=== PATIENT | male | born 1990 | race Caucasian/White ===

== ENCOUNTER 2017-02-23 02:28 | Emergency (ER) | payer SELFPAY ==
[~2017-02-23] VITALS: Ht 177.8 cm; Wt 70.0 kg
[~2017-02-23 02:28] MED LIST: ARIP1TAB12 PO
[2017-02-23] MEDS ORDERED: IBUP800T23 PO (03:44)
[2017-02-23] MEDS ORDERED: IBUPROFEN 800 MG TAB PO ONE (03:45)
[2017-02-23 03:48] VITALS: BP 155/89; PULSE 79; RESP 18; O2SAT 98
--- NOTE | 2017-02-23 03:48 | PD ---
HPI Chief Complaint: Injury Time Seen by Provider: 03:42 Travel History International Travel<30 days: No Contact w/Intl Traveler<30days: No Traveled to known affect area: No History of Present Illness HPI 26-year-old white male presents to emergency department with complains of bilateral foot pain. He states that he was in boots and jump off a 6-8 foot fence 5 days ago. He states that he's been walking around since then has had pain in both of his heels and arches. He states that he has taken his boots off because they have developed blisters on his feet. He states that he has not been wearing socks. He presents for evaluation. Pain is moderate. Worse with weightbearing. No other injury. Denies injury to his head, neck or back. Up-to-date with immunizations. PFSH Past Medical History Asthma: Yes Bipolar Disorder: Yes Anxiety: Yes Depression: Yes Chemotherapy: No COPD: No Diminished Hearing: No Endocrine: No Gastrointestinal Disorders: No GERD: No Genitourinary: No Hiatal Hernia: No Implanted Vascular Access Dvce: No Kidney Stones: No Musculoskeletal: No Neurologic: No Psychiatric: Yes Reproductive: No Respiratory: No Immunizations Current: Yes Radiation Therapy: No Renal Failure: No Schizophrenia: Yes Sickle Cell Disease: No Thyroid Disease: No Ulcer: No Past Surgical History Abdominal Surgery: Yes (LAP BAND) AICD: No Arteriovenous Shunt: No Ear Surgery: No Endocrine Surgery: No Eye Surgery: No Gynecologic Surgery: No Insulin Pump: No Joint Replacement: No Oral Surgery: No Pacemaker: No Other Surgery: No Social History Alcohol Use: Yes (OCC) Tobacco Use: Yes (4 TO 5 CIGARETTES/DAY) Substance Use: No Allergies-Medications (Allergen,Severity, Reaction): Coded Allergies: shellfish derived (Unverified Allergy, Severe, 01/19/17) Reported Meds & Prescriptions Reported Meds & Active Scripts Active Aripiprazole 10 Mg Tab 25 Mg PO DAILY 10 Days Review of Systems Except as stated in HPI: all other systems reviewed are Neg Physical Exam Narrative GENERAL: This is a well-nourished, well-developed patient, in no apparent distress. SKIN: No rashes, ecchymoses or lesions. Warm and dry. HEAD: Atraumatic. Normocephalic. EYES: PERRL, EOMI, no discharge or injection. No scleral icterus. EARS: Clear NOSE: Nasal turbinates appear normal. THROAT: Mucosa pink and moist. Airway patent. NECK: Trachea midline. supple, moves head freely. LUNGS: Clear to auscultation. CV: Regular in rhythm. ABDOMEN: Soft nontender. EXT: No clubbing cyanosis. Examination of both feet reveal pain across the plantar arch into the heel. No pain in the Achilles. Patient has diffuse friction blisters on both feet from wearing boots without socks. Patient has slight maceration between the toes from athletes feet. Patient hasn't intact gross sensation with good distal pulses. No pain in the ankles, knees or hips. Data Data Orders Orders Splint Or Brace Apply/Monitor (02/23/17 03:42) Ibuprofen (Motrin) (02/23/17 03:45) MDM Medical Decision Making Medical Screen Exam Complete: Yes Emergency Medical Condition: Yes Medical Record Reviewed: Yes Interpretation(s) Right foot: Negative for acute bony injury. Left foot: Negative for acute bony injury Differential Diagnosis MDM: High Differential diagnoses: Fracture, sprain, strain, dislocation, contusion, neurovascular injury Narrative Course X-rays of both feet are negative for bony injury. Patient's given 800 mg of Motrin by mouth, Christ wraps and socks. Diagnosis Primary Impression: bilateral foot contusions Patient Instructions: General Instructions Additional Instructions: Rest. Elevation. Ice packs for the next 3 days. Christ wrap. Daily wound care with soap, water, Neosporin. Limit walking. Medications as directed Follow-up with an orthopedist or your doctor in one week. Return to the ER if any problems Med/Other Pt SpecificInfo: Prescription(s) given Scripts Ibuprofen (Ibuprofen) 800 Mg Tab 800 MG PO Q8H, #30 TAB 0 Refills Prov: Kourtney Manrique 02/23/17 Disposition: 01 DISCHARGE HOME Condition: Stable Rufino Ag Feb 23, 2017 03:48
--- NOTE | 2017-02-23 05:04 | RADRPT ---
EXAM DATE/TIME: 02/23/2017 00:00 [facility] COMPARISON: No previous studies available for comparison. INDICATIONS : Pain in feet from jumping over fence 4 days ago. MEDICAL HISTORY : None. SURGICAL HISTORY : None. ENCOUNTER: Initial ACUITY: 4 - 6 days PAIN SCORE: 0/10 LOCATION: Right foot FINDINGS: Three view examination of the right foot demonstrates no soft tissue swelling, dislocation, or fractu re. The tarsal bones appear intact. The interphalangeal and metatarsophalangeal joints are intact. The calcaneus is intact. Bony mineralization is normal. CONCLUSION: Unremarkable examination of the right foot. David Guadarrama Jr., MD on February 23, 2017 at 5:02 Board Certified Radiologist. This report was verified electronically.
--- NOTE | 2017-02-23 05:05 | RADRPT ---
EXAM DATE/TIME: 02/23/2017 00:00 [facility] COMPARISON: FOOT LEFT COMPLETE ([id number]), November 03, 2015, 1:31. INDICATIONS : Pain in feet from jumping over fence 4 days ago. MEDICAL HISTORY : None. SURGICAL HISTORY : None. ENCOUNTER: Initial ACUITY: 4 - 6 days PAIN SCORE: 0/10 LOCATION: Left foot FINDINGS: Three view examination of the left foot demonstrates no soft tissue swelling, dislocation, or fractur e. The tarsal bones appear intact. The interphalangeal and metatarsophalangeal joints are intact. The calcaneus is intact. Bony mineralization is normal. CONCLUSION: Unremarkable examination of the left foot. David Guadarrama Jr., MD on February 23, 2017 at 5:03 Board Certified Radiologist. This report was verified electronically.
== END 2017-02-23 04:02 | disposition home or self-care (01) ==
LOC: NEPD 02:28
DX: S90.32XA Contusion of left foot, initial encounter (principal); S90.31XA Contusion of right foot, initial encounter; X58.XXXA Exposure to other specified factors, initial encounter
CPT/HCPCS: 73630; 99283

== ENCOUNTER 2017-02-23 04:09 | Emergency (ER) | payer SELFPAY ==
[~2017-02-23 04:09] MED LIST changes: +IBUP800T23 PO
[2017-02-23 04:12] VITALS: BP 139/90; PULSE 85; RESP 16; TEMP 98.4; O2SAT 99
--- NOTE | 2017-02-23 05:43 | PD ---
HPI Chief Complaint: Psychiatric Symptoms Time Seen by Provider: 05:37 Travel History International Travel<30 days: No Contact w/Intl Traveler<30days: No Traveled to known affect area: No History of Present Illness HPI 26-year-old white male returns to the ER after being just discharged after evaluation of foot pain. The patient was initially seen for bilateral foot pain and was given prescriptions for ibuprofen and was given a traps and socks. He returns after being discharged stating that he is feeling suicidal and homicidal. He states that he has nowhere to go when he is homeless. The patient is very vague on any plan. He is very vague on his thoughts of homicide. The patient denies any toxic ingestions. PFSH Past Medical History Asthma: Yes Bipolar Disorder: Yes Anxiety: Yes Depression: Yes Chemotherapy: No COPD: No Diminished Hearing: No Endocrine: No Gastrointestinal Disorders: No GERD: No Genitourinary: No Hiatal Hernia: No Implanted Vascular Access Dvce: No Kidney Stones: No Musculoskeletal: No Neurologic: No Psychiatric: Yes Reproductive: No Respiratory: No Immunizations Current: Yes Radiation Therapy: No Renal Failure: No Schizophrenia: Yes Sickle Cell Disease: No Thyroid Disease: No Ulcer: No Past Surgical History Abdominal Surgery: Yes (LAP BAND) AICD: No Arteriovenous Shunt: No Ear Surgery: No Endocrine Surgery: No Eye Surgery: No Gynecologic Surgery: No Insulin Pump: No Joint Replacement: No Oral Surgery: No Pacemaker: No Other Surgery: No Social History Alcohol Use: Yes (OCC) Tobacco Use: Yes (4 TO 5 CIGARETTES/DAY) Substance Use: No Allergies-Medications (Allergen,Severity, Reaction): Coded Allergies: shellfish derived (Unverified Allergy, Severe, 02/23/17) peanut (Verified Allergy, Unknown, 02/23/17) Reported Meds & Prescriptions Reported Meds & Active Scripts Active Ibuprofen 800 Mg Tab 800 Mg PO Q8H Aripiprazole 10 Mg Tab 25 Mg PO DAILY 10 Days Review of Systems Except as stated in HPI: all other systems reviewed are Neg Physical Exam Narrative GENERAL: This is a well-nourished, well-developed patient, in no apparent distress. SKIN: No rashes, ecchymoses or lesions. Warm and dry. HEAD: Atraumatic. Normocephalic. EYES: PERRL, EOMI, no discharge or injection. No scleral icterus. EARS: Clear NOSE: Nasal turbinates appear normal. THROAT: Mucosa pink and moist. Airway patent. NECK: Trachea midline. supple, moves head freely. LUNGS: Clear to auscultation. CV: Regular in rhythm. ABDOMEN: Soft nontender. EXT: No clubbing cyanosis. Complaints of tenderness in both feet. Data Data Last Documented VS Vital Signs Date Time Temp Pulse Resp B/P (MAP) Pulse Ox O2 Delivery O2 Flow Rate FiO2 02/23/17 04:12 98.4 85 16 139/90 (106) 99 MDM Medical Decision Making Medical Screen Exam Complete: Yes Emergency Medical Condition: Yes Medical Record Reviewed: Yes Differential Diagnosis MDM: High Differential diagnoses: Schizophrenia, schizoaffective disorder, bipolar, anxiety, depression, adjustment reaction, mood disorder NOS, ODD, depressive disorder NOS, dementia, dementia with agitation, psychosis NOS, substance induced mood disorder, intermittent explosive disorder, Asperger syndrome, infection,electrolyte abnormality, malingering. Narrative Course The patient was noted to leave the examination room. He was found sleeping in another pod. He had laid down in a medical bed and was attempting to sleep. Security has brought the patient back to his examination room. The patient states that if he is unable to lay down and go to sleep he would rather leave. The patient has no current plan on self-harm or harm to others. He is not acutely suicidal or homicidal. I suspect this is malingering in attempts to obtain a domicile. I do not believe the patient warrants a Apndey act at this time. The patient leaves and is advised to return if he changes his by for psychological evaluation. The patient is noted leave in the examination room before his discharge instructions were given to him. Diagnosis Primary Impression: Malingering Patient Instructions: General Instructions Additional Instructions: Rest. Increase fluids. Avoid alcohol. Avoid illegal substances. Follow-up with [facility]. Follow-up with a medical doctor this week. Return to the ER for emergencies Med/Other Pt SpecificInfo: No Change to Meds Disposition: 01 DISCHARGE HOME Condition: Stable Rufino Ag Feb 23, 2017 05:43
== END 2017-02-23 05:47 | disposition home or self-care (01) ==
LOC: NEPD 04:09
DX: Z76.5 Malingerer [conscious simulation] (principal); M79.671 Pain in right foot; M79.672 Pain in left foot; F31.9 Bipolar disorder, unspecified; Z59.0 Homelessness
CPT/HCPCS: 99281

== ENCOUNTER 2017-02-24 20:58 | Emergency (ER) | payer SELFPAY | END 2017-02-24 21:45 | disposition left against medical advice (07) | LOC: NED 20:58 | DX: Z53.21 Procedure and treatment not carried out due to patient leaving prior to being seen by health care provider (principal) | CPT/HCPCS: 99281 ==

== ENCOUNTER 2017-03-09 04:57 | Emergency (ER) | payer SELFPAY ==
[2017-03-09 05:00] VITALS: BP 134/86; PULSE 84; RESP 16; TEMP 97.9; O2SAT 96
== END 2017-03-09 05:25 | disposition left against medical advice (07) ==
LOC: NEPB 04:57
DX: F99 Mental disorder, not otherwise specified (principal)
CPT/HCPCS: 99281

== ENCOUNTER 2017-03-29 06:23 | Emergency (ER) | payer SELFPAY ==
[~2017-03-29] VITALS: Ht 180.3 cm; Wt 83.5 kg
[2017-03-29 06:24] VITALS: BP 130/78; PULSE 79; RESP 16; TEMP 98.6; O2SAT 96
[2017-03-29] MEDS ORDERED: PALI234P IM (06:41)
--- NOTE | 2017-03-29 06:54 | PD ---
HPI Chief Complaint: Psychiatric Symptoms Time Seen by Provider: 06:51 Travel History International Travel<30 days: No Contact w/Intl Traveler<30days: No Traveled to known affect area: No History of Present Illness HPI Patient's a 26-year-old male presenting to emergency department voluntarily for psychiatric evaluation. Patient reports suicidal ideations, he states he was a jump off a bridge when he is scared of the fish in the water. He reports hearing voices, specifically a woman's voice. The voices don't tell him to do anything. He reports schizophrenia. He states that he smokes marijuana and drinks alcohol. Patient broke up with his 4 years ago and he is estranged from his parents. PFSH Past Medical History Asthma: Yes Bipolar Disorder: Yes Anxiety: Yes Depression: Yes Chemotherapy: No COPD: No Diminished Hearing: No Endocrine: No Gastrointestinal Disorders: No GERD: No Genitourinary: No Hiatal Hernia: No Implanted Vascular Access Dvce: No Kidney Stones: No Musculoskeletal: No Neurologic: No Psychiatric: Yes Reproductive: No Respiratory: No Immunizations Current: Yes Radiation Therapy: No Renal Failure: No Schizophrenia: Yes Sickle Cell Disease: No Thyroid Disease: No Ulcer: No Past Surgical History Abdominal Surgery: Yes (LAP BAND) AICD: No Arteriovenous Shunt: No Ear Surgery: No Endocrine Surgery: No Eye Surgery: No Gynecologic Surgery: No Insulin Pump: No Joint Replacement: No Oral Surgery: No Pacemaker: No Other Surgery: No Social History Alcohol Use: Yes (OCC) Tobacco Use: Yes (4 TO 5 CIGARETTES/DAY) Substance Use: Yes (POT) Allergies-Medications (Allergen,Severity, Reaction): Coded Allergies: shellfish derived (Unverified Allergy, Severe, 03/29/17) aripiprazole (Verified Allergy, Intermediate, Swelling, 03/29/17) peanut (Verified Allergy, Unknown, 03/29/17) Reported Meds & Prescriptions Reported Meds & Active Scripts Active Reported Invega Sustenna Inj (Paliperidone Palmitate) 234 Mg/1.5 Ml Inj 234 Mg IM Q28D Review of Systems Except as stated in HPI: all other systems reviewed are Neg Psychiatric: Positive: Suicidal Ideations, Mood Disorder, Substance Abuse Physical Exam Narrative GENERAL: Well-developed, well-nourished, alert male. SKIN: Warm and dry. HEAD: Atraumatic. Normocephalic. EYES: Pupils equal and round. No scleral icterus. No injection or drainage. ENT: No nasal bleeding or discharge. Mucous membranes pink and moist. NECK: Trachea midline. No JVD. CARDIOVASCULAR: Regular rate and rhythm. RESPIRATORY: No accessory muscle use. Clear to auscultation. Breath sounds equal bilaterally. GASTROINTESTINAL: Abdomen soft, non-tender, nondistended. Hepatic and splenic margins not palpable. MUSCULOSKELETAL: Extremities without clubbing, cyanosis, or edema. No obvious deformities. NEUROLOGICAL: Awake and alert. No obvious cranial nerve deficits. Motor grossly within normal limits. Five out of 5 muscle strength in the arms and legs. Normal speech. PSYCHIATRIC: Appropriate mood and flat affect; insight and judgment normal. Data Data Last Documented VS Vital Signs Date Time Temp Pulse Resp B/P (MAP) Pulse Ox O2 Delivery O2 Flow Rate FiO2 03/29/17 06:24 98.6 79 16 130/78 (95) 96 Room Air Orders Orders Complete Blood Count With Diff (03/29/17 06:50) Comprehensive Metabolic Panel (03/29/17 06:50) Psych Screen (03/29/17 06:50) Drug Screen, Random Urine (03/29/17 06:50) Alcohol (Ethanol) (03/29/17 06:50) MDM Medical Decision Making Medical Screen Exam Complete: Yes Emergency Medical Condition: Yes Medical Record Reviewed: Yes Interpretation(s) Vital Signs Date Time Temp Pulse Resp B/P (MAP) Pulse Ox O2 Delivery O2 Flow Rate FiO2 03/29/17 06:24 98.6 79 16 130/78 (95) 96 Room Air Differential Diagnosis Mood disorder versus substance abuse versus malingering versus suicidal ideations versus other Narrative Course Patient presented voluntarily for psychiatric evaluation secondary to suicidal ideations and hallucinations.Mental health screening discussed with the patient. Psychiatric screen ordered. Patient's vital signs are stable. Care of patient transferred to Claudine AGARWAL, she will determine patient's disposition. Charlotte Shields Mar 29, 2017 06:54
[2017-03-29 07:08] LABS: AUTOMATED NEUTROPHIL # 7.7 TH/MM3 (1.8-7.7); BASOPHIL # 0.1 TH/MM3 (0-0.2); BASOPHIL % 0.7 % (0.0-2.0); EOSINOPHIL # 0.2 TH/MM3 (0-0.4); EOSINOPHIL % 1.5 % (0.0-4.0); HEMATOCRIT 37.6 % (39.0-51.0); HEMOGLOBIN 12.9 GM/DL (13.0-17.0); LYMPH % 21.3 % (9.0-44.0); LYMPHOCYTE # 2.5 TH/MM3 (1.0-4.8); MEAN CELL VOLUME 90.4 FL (80.0-100.0); MEAN CORPUSCULAR HEMOGLOBIN 31.1 PG (27.0-34.0); MEAN CORPUSCULAR HGB CONC 34.4 % (32.0-36.0); MEAN PLATELET VOLUME 7.1 FL (7.0-11.0); MONO % 9.6 % (0.0-8.0); MONOCYTE # 1.1 TH/MM3 (0-0.9); NEUT % 66.9 % (16.0-70.0); PLATELET COUNT 316 TH/MM3 (150-450); RED BLOOD COUNT 4.16 MIL/MM3 (4.50-5.90); RED CELL DISTRIBUTION WIDTH 13.1 % (11.6-17.2); WHITE BLOOD COUNT 11.6 TH/MM3 (4.0-11.0)
[2017-03-29 07:26] LABS: ALBUMIN 3.7 GM/DL (3.4-5.0); ALT (GPT) 29 U/L (12-78); AST (GOT) 22 U/L (15-37); BICARBONATE 26.9 MEQ/L (21.0-32.0); BLOOD UREA NITROGEN 13 MG/DL (7-18); CALCIUM 8.9 MG/DL (8.5-10.1); CHLORIDE 103 MEQ/L (98-107); GLOMERULAR FILTRATION RATE 100 ML/MIN (>89); GLUCOSE,RANDOM 106 MG/DL (74-106); SODIUM (NA) 140 MEQ/L (136-145)
[2017-03-29 07:29] LABS: ALKALINE PHOSPHATASE 69 U/L (45-117); TOTAL BILIRUBIN ADULT 0.5 MG/DL (0.2-1.0); TOTAL PROTEIN 6.8 GM/DL (6.4-8.2)
--- NOTE | 2017-03-29 07:46 | PD ---
Physical Exam Time Seen by Provider: 07:44 Narrative I received report from ANY Marcial at change of shift. She asked me to review the labs and clear the patient medically for psych evaluation if laboratory results were unremarkable. Data Data Last Documented VS Vital Signs Date Time Temp Pulse Resp B/P (MAP) Pulse Ox O2 Delivery O2 Flow Rate FiO2 03/29/17 06:24 98.6 79 16 130/78 (95) 96 Room Air Orders Orders Complete Blood Count With Diff (03/29/17 06:50) Comprehensive Metabolic Panel (03/29/17 06:50) Psych Screen (03/29/17 06:50) Drug Screen, Random Urine (03/29/17 06:50) Alcohol (Ethanol) (03/29/17 06:50) Labs Laboratory Tests Test 03/29/17 06:50 White Blood Count 11.6 TH/MM3 Red Blood Count 4.16 MIL/MM3 Hemoglobin 12.9 GM/DL Hematocrit 37.6 % Mean Corpuscular Volume 90.4 FL Mean Corpuscular Hemoglobin 31.1 PG Mean Corpuscular Hemoglobin Concent 34.4 % Red Cell Distribution Width 13.1 % Platelet Count 316 TH/MM3 Mean Platelet Volume 7.1 FL Neutrophils (%) (Auto) 66.9 % Lymphocytes (%) (Auto) 21.3 % Monocytes (%) (Auto) 9.6 % Eosinophils (%) (Auto) 1.5 % Basophils (%) (Auto) 0.7 % Neutrophils # (Auto) 7.7 TH/MM3 Lymphocytes # (Auto) 2.5 TH/MM3 Monocytes # (Auto) 1.1 TH/MM3 Eosinophils # (Auto) 0.2 TH/MM3 Basophils # (Auto) 0.1 TH/MM3 CBC Comment DIFF FINAL Differential Comment Blood Urea Nitrogen 13 MG/DL Creatinine 0.90 MG/DL Random Glucose 106 MG/DL Total Protein 6.8 GM/DL Albumin 3.7 GM/DL Calcium Level 8.9 MG/DL Alkaline Phosphatase 69 U/L Aspartate Amino Transf (AST/SGOT) 22 U/L Alanine Aminotransferase (ALT/SGPT) 29 U/L Total Bilirubin 0.5 MG/DL Sodium Level 140 MEQ/L Potassium Level 3.6 MEQ/L Chloride Level 103 MEQ/L Carbon Dioxide Level 26.9 MEQ/L Anion Gap 10 MEQ/L Estimat Glomerular Filtration Rate 100 ML/MIN Ethyl Alcohol Level LESS THAN 3 MG/DL MDM Supervised Visit with TERESA: No Narrative Course I received report from ANY Marcial at change of shift. She asked me to review the labs and clear the patient medically for psych evaluation if laboratory results were unremarkable. 0745: Labs reviewed and unremarkable. Patient is medically cleared cleared for psych evaluation. 0820: I spoke with the patient and I feel the patient is a threat to himself and needs to be further evaluated by psych. He is asking to leave at this time because he says the "hospital is scary because it so old and the food is not good." He is making bizarre comments and acting bizarre. He is having paranoid thoughts. He thinks there is a surgeon here that wants to mutilate him and eat him because he practices cannibalism. He says he couldn't walk over the bridge to jump off of it because he was scared. He says he is not a threat to himself because he doesn't have any knives here. The patient will be Pandey acted for further treatment and psychiatric evaluation. Diagnosis Primary Impression: Medical clearance for psychiatric admission Condition: Stable Claudine Lawton Mar 29, 2017 07:46
[2017-03-29 11:40] VITALS: BP 112/58; PULSE 70; RESP 16; TEMP 98.1; O2SAT 98
[2017-03-29 23:07] VITALS: BP 120/58; PULSE 51; RESP 18
[2017-03-30 02:31] VITALS: BP 119/70; PULSE 50; RESP 18
[2017-03-30 06:22] VITALS: BP 107/56; PULSE 58; RESP 18
--- NOTE | 2017-03-30 15:41 | PD ---
History of Present Illness Chief Complaint: Psychiatric Symptoms Time Seen by Provider: 15:00 Travel History International Travel<30 Days: No Contact w/Intl Traveler<30days: No Known affected area: No Legal Status Legal Status: Pandey Act Pandey Act Signed By: Wilton Quezada MD Pandey Act Comment: 03/29/2017 822 AM History of Present Illness: Patient's a 26-year-old male with history of schizophrenia presenting to emergency department voluntarily for psychiatric evaluation. The patient reports that he was walking around for the past 4 days and has been unable to sleep. He then called the police and asked them to bring him to the hospital as he was feeling suicdal. The patient did not make any attempt at harming himself. When he presented to the ED he was placed under a Pandey act by Dr. Quezada and that documentation reads as follows " Patient says he is having paranoid thoughts. he is acting bizarre and making bizarre comments". The patient has slept here in J pod. he has not presented any behavioral concerns and no suicidality. EMR reviewed. He was last psychiatrically hospitalized in December of 2016 under the care of Dr Siddiqi. He is alert and oriented male, appears stated age. he is calm and cooperative. Speech is clear. He denies any hallucinatory process at this time. Denies any suicidal or homicidal ideation, intent or plan. He does report that he was in half-way last month and I suspect he was released recently. He tells me he got an injection of Invega Sustenna and he want s to receive an injection before he leaves today. He is requesting to be discharged since he was able to sleep last night. He also tells me that he receives outpatient treatment at [facility]. Staff has contacted [facility] to verify that he is in fact receiving treatment there. his last medications were Haldol as well as Cogentin. He has a case packer and sealer as well. I spoke with fan Lóepz and have asked him to meet with patient to facilitate discharge. PFS Past Medical History Asthma: Yes Bipolar Disorder: Yes Anxiety: Yes Depression: Yes Chemotherapy: No COPD: No Diminished Hearing: No Endocrine: No Gastrointestinal Disorders: No GERD: No Genitourinary: No Hiatal Hernia: No Implanted Vascular Access Dvce: No Kidney Stones: No Musculoskeletal: No Neurologic: No Psychiatric: Yes Reproductive: No Respiratory: No Immunizations Current: Yes Radiation Therapy: No Renal Failure: No Schizophrenia: Yes Sickle Cell Disease: No Thyroid Disease: No Ulcer: No Past Surgical History Abdominal Surgery: Yes (LAP BAND) AICD: No Arteriovenous Shunt: No Ear Surgery: No Endocrine Surgery: No Eye Surgery: No Gynecologic Surgery: No Insulin Pump: No Joint Replacement: No Oral Surgery: No Pacemaker: No Other Surgery: No Psychiatric History Psychiatric History Hx Psychiatric Treatment: Patient with a hx of schizophrenia, bipolar d/o, depression and anxiety d/o. His last inpatient admission was Dec 19-2016 for schizoaffective. Patient at [facility] from November 2014 to Mar 2015. History of Inpatient Treatment: Yes Guns or firearms in home: No Social History Single, never . Homeless x 4 years. has completed a 9th grade education. Unemployed. Has extensive legal history and was last incarcerated in of this year. Hx Alcohol Use: Yes (OCC) Hx Tobacco Use: Yes (4 TO 5 CIGARETTES/DAY) Hx Substance Use: Yes (marijuana) Substance Use Type: Alcohol, Marijuana Other Substances Used: DRANK A BOTTLE OF WINE TODAY Hx of Substance Use Treatment: No Family Psychiatric History Unknown Allergies-Medications (Allergen,Severity, Reaction): Coded Allergies: shellfish derived (Unverified Allergy, Severe, 03/29/17) aripiprazole (Verified Allergy, Intermediate, Swelling, 03/29/17) peanut (Verified Allergy, Unknown, 03/29/17) Reported Meds & Prescriptions Reported Meds & Active Scripts Active Reported Invega Sustenna Inj (Paliperidone Palmitate) 234 Mg/1.5 Ml Inj 234 Mg IM Q28D Review of Systems Except as stated in HPI: all other systems reviewed are Neg Mental Status Examination Appearance: Appropriate Consciousness: Alert Orientation: x4 Motor Activity: Normal gait Speech: Unremarkable Language: Adequate Fund of Knowledge: Adequate Attention and Concentration: Easily Distracted Memory: Unremarkable Mood: Appropriate Affect: Appropriate Thought Process & Associations: Logical Thought Content: Appropriate, Other (Deneis any paranoid thoufghts ) Hallucination Type: None (at present) Delusion Type: None Suicidal Ideation: No Suicidal Plan: No Suicidal Intention: No Homicidal Ideation: No Homicidal Plan: No Homicidal Intention: No Insight: Poor Judgment: Poor MDM Medical Decision Making Medical Record Reviewed: Yes Assessment/Plan Patient's a 26-year-old male with history of schizophrenia presenting to emergency department voluntarily for psychiatric evaluation. The patient reports that he was walking around for the past 4 days and has been unable to sleep. He then called the police and asked them to bring him to the hospital as he was feeling suicdal. The patient did not make any attempt at harming himself. When he presented to the ED he was placed under a Pandey act by Dr. Quezada and that documentation reads as follows " Patient says he is having paranoid thoughts. he is acting bizarre and making bizarre comments". The patient has slept here in J pod. he has not presented any behavioral concerns and no suicidality. Patient is requesting to be discharged at thsi time and is denying any hallucinations, denies feeling paranoid and denies any suicidal or homicidal ideation, intent or plan. He wants to follow up with [facility]. At this time he does not meet pandey act criteria and is requesting to be diuscharged. Daniella BA. Follow up with [facility]. He will be administered Haldol and Cogentin before he is discharged. Orders Orders Diet Regular Basic (03/29/17 Dinner) Diet Regular Basic (03/30/17 Breakfast) Diet Regular Basic (03/30/17 Lunch) Results Vital Signs Date Time Temp Pulse Resp B/P (MAP) Pulse Ox O2 Delivery O2 Flow Rate FiO2 03/30/17 06:22 58 18 107/56 (73) Room Air 03/30/17 02:31 50 18 119/70 (86) 03/29/17 23:07 51 18 120/58 (78) Diagnosis Primary Impression: Schizoaffective disorder Additional Impression: Cannabis abuse Psychiatrically Cleared: Yes Med/ Other Pt Specific Info: No Change to Meds Disposition: 01 DISCHARGE HOME Condition: Stable Problem Qualifiers Primary Impression: Schizoaffective disorder Qualified Codes: F25.9 - Schizoaffective disorder, unspecified Selene Longoria [facility] Mar 30, 2017 15:41
--- NOTE | 2017-03-30 15:41 | PD ---
History of Present Illness Chief Complaint: Psychiatric Symptoms Time Seen by Provider: 15:00 Travel History International Travel<30 Days: No Contact w/Intl Traveler<30days: No Known affected area: No Legal Status Legal Status: Pandey Act Pandey Act Signed By: Wilton Quezada MD Pandey Act Comment: 03/29/2017 822 AM History of Present Illness: Patient's a 26-year-old male with history of schizophrenia presenting to emergency department voluntarily for psychiatric evaluation. The patient reports that he was walking around for the past 4 days and has been unable to sleep. He then called the police and asked them to bring him to the hospital as he was feeling suicdal. The patient did not make any attempt at harming himself. When he presented to the ED he was placed under a Pandey act by Dr. Quezada and that documentation reads as follows " Patient says he is having paranoid thoughts. he is acting bizarre and making bizarre comments". The patient has slept here in J pod. he has not presented any behavioral concerns and no suicidality. EMR reviewed. He was last psychiatrically hospitalized in December of 2016 under the care of Dr Siddiqi. He is alert and oriented male, appears stated age. he is calm and cooperative. Speech is clear. He denies any hallucinatory process at this time. Denies any suicidal or homicidal ideation, intent or plan. He does report that he was in [facility] last month and I suspect he was released recently. He tells me he got an injection of Invega Sustenna and he want s to receive an injection before he leaves today. He is requesting to be discharged since he was able to sleep last night. He also tells me that he receives outpatient treatment at [facility]. Staff has contacted [facility] to verify that he is in fact receiving treatment there. his last medications were Haldol as well as Cogentin. He has a disease case manager rn as well. I spoke with fan López and have asked him to meet with patient to facilitate discharge. PFS Past Medical History Asthma: Yes Bipolar Disorder: Yes Anxiety: Yes Depression: Yes Chemotherapy: No COPD: No Diminished Hearing: No Endocrine: No Gastrointestinal Disorders: No GERD: No Genitourinary: No Hiatal Hernia: No Implanted Vascular Access Dvce: No Kidney Stones: No Musculoskeletal: No Neurologic: No Psychiatric: Yes Reproductive: No Respiratory: No Immunizations Current: Yes Radiation Therapy: No Renal Failure: No Schizophrenia: Yes Sickle Cell Disease: No Thyroid Disease: No Ulcer: No Past Surgical History Abdominal Surgery: Yes (LAP BAND) AICD: No Arteriovenous Shunt: No Ear Surgery: No Endocrine Surgery: No Eye Surgery: No Gynecologic Surgery: No Insulin Pump: No Joint Replacement: No Oral Surgery: No Pacemaker: No Other Surgery: No Psychiatric History Psychiatric History Hx Psychiatric Treatment: Patient with a hx of schizophrenia, bipolar d/o, depression and anxiety d/o. His last inpatient admission was Dec 19-2016 for schizoaffective. Patient at [facility] from November 2014 to Mar 2015. History of Inpatient Treatment: Yes Guns or firearms in home: No Social History Single, never . Homeless x 4 years. has completed a 9th grade education. Unemployed. Has extensive legal history and was last incarcerated in of this year. Hx Alcohol Use: Yes (OCC) Hx Tobacco Use: Yes (4 TO 5 CIGARETTES/DAY) Hx Substance Use: Yes (marijuana) Substance Use Type: Alcohol, Marijuana Other Substances Used: DRANK A BOTTLE OF WINE TODAY Hx of Substance Use Treatment: No Family Psychiatric History Unknown Allergies-Medications (Allergen,Severity, Reaction): Coded Allergies: shellfish derived (Unverified Allergy, Severe, 03/29/17) aripiprazole (Verified Allergy, Intermediate, Swelling, 03/29/17) peanut (Verified Allergy, Unknown, 03/29/17) Reported Meds & Prescriptions Reported Meds & Active Scripts Active Reported Invega Sustenna Inj (Paliperidone Palmitate) 234 Mg/1.5 Ml Inj 234 Mg IM Q28D Review of Systems Except as stated in HPI: all other systems reviewed are Neg Mental Status Examination Appearance: Appropriate Consciousness: Alert Orientation: x4 Motor Activity: Normal gait Speech: Unremarkable Language: Adequate Fund of Knowledge: Adequate Attention and Concentration: Easily Distracted Memory: Unremarkable Mood: Appropriate Affect: Appropriate Thought Process & Associations: Logical Thought Content: Appropriate, Other (Deneis any paranoid thoufghts ) Hallucination Type: None (at present) Delusion Type: None Suicidal Ideation: No Suicidal Plan: No Suicidal Intention: No Homicidal Ideation: No Homicidal Plan: No Homicidal Intention: No Insight: Poor Judgment: Poor MDM Medical Decision Making Medical Record Reviewed: Yes Assessment/Plan Patient's a 26-year-old male with history of schizophrenia presenting to emergency department voluntarily for psychiatric evaluation. The patient reports that he was walking around for the past 4 days and has been unable to sleep. He then called the police and asked them to bring him to the hospital as he was feeling suicdal. The patient did not make any attempt at harming himself. When he presented to the ED he was placed under a Pandey act by Dr. Quezada and that documentation reads as follows " Patient says he is having paranoid thoughts. he is acting bizarre and making bizarre comments". The patient has slept here in J pod. he has not presented any behavioral concerns and no suicidality. Patient is requesting to be discharged at thsi time and is denying any hallucinations, denies feeling paranoid and denies any suicidal or homicidal ideation, intent or plan. He wants to follow up with [facility]. At this time he does not meet pandey act criteria and is requesting to be diuscharged. Daniella BA. Follow up with [facility]. He will be administered Haldol and Cogentin before he is discharged. Orders Orders Diet Regular Basic (03/29/17 Dinner) Diet Regular Basic (03/30/17 Breakfast) Diet Regular Basic (03/30/17 Lunch) Results Vital Signs Date Time Temp Pulse Resp B/P (MAP) Pulse Ox O2 Delivery O2 Flow Rate FiO2 03/30/17 06:22 58 18 107/56 (73) Room Air 03/30/17 02:31 50 18 119/70 (86) 03/29/17 23:07 51 18 120/58 (78) Diagnosis Primary Impression: Schizoaffective disorder Additional Impression: Cannabis abuse Psychiatrically Cleared: Yes Med/ Other Pt Specific Info: No Change to Meds Disposition: 01 DISCHARGE HOME Condition: Stable Problem Qualifiers Primary Impression: Schizoaffective disorder Qualified Codes: F25.9 - Schizoaffective disorder, unspecified Selene Longoria [facility] Mar 30, 2017 15:41
--- NOTE | 2017-03-30 15:41 | PD ---
History of Present Illness Chief Complaint: Psychiatric Symptoms Time Seen by Provider: 15:00 Travel History International Travel<30 Days: No Contact w/Intl Traveler<30days: No Known affected area: No Legal Status Legal Status: Pandey Act Pandey Act Signed By: Wilton Quezada MD Pandey Act Comment: 03/29/2017 822 AM History of Present Illness: Patient's a 26-year-old male with history of schizophrenia presenting to emergency department voluntarily for psychiatric evaluation. The patient reports that he was walking around for the past 4 days and has been unable to sleep. He then called the police and asked them to bring him to the hospital as he was feeling suicdal. The patient did not make any attempt at harming himself. When he presented to the ED he was placed under a Pandey act by Dr. Quezada and that documentation reads as follows " Patient says he is having paranoid thoughts. he is acting bizarre and making bizarre comments". The patient has slept here in J pod. he has not presented any behavioral concerns and no suicidality. EMR reviewed. He was last psychiatrically hospitalized in December of 2016 under the care of Dr Siddiqi. He is alert and oriented male, appears stated age. he is calm and cooperative. Speech is clear. He denies any hallucinatory process at this time. Denies any suicidal or homicidal ideation, intent or plan. He does report that he was in [facility] last month and I suspect he was released recently. He tells me he got an injection of Invega Sustenna and he want s to receive an injection before he leaves today. He is requesting to be discharged since he was able to sleep last night. He also tells me that he receives outpatient treatment at [facility]. Staff has contacted [facility] to verify that he is in fact receiving treatment there. his last medications were Haldol as well as Cogentin. He has a porter sample case as well. I spoke with fan López and have asked him to meet with patient to facilitate discharge. PFS Past Medical History Asthma: Yes Bipolar Disorder: Yes Anxiety: Yes Depression: Yes Chemotherapy: No COPD: No Diminished Hearing: No Endocrine: No Gastrointestinal Disorders: No GERD: No Genitourinary: No Hiatal Hernia: No Implanted Vascular Access Dvce: No Kidney Stones: No Musculoskeletal: No Neurologic: No Psychiatric: Yes Reproductive: No Respiratory: No Immunizations Current: Yes Radiation Therapy: No Renal Failure: No Schizophrenia: Yes Sickle Cell Disease: No Thyroid Disease: No Ulcer: No Past Surgical History Abdominal Surgery: Yes (LAP BAND) AICD: No Arteriovenous Shunt: No Ear Surgery: No Endocrine Surgery: No Eye Surgery: No Gynecologic Surgery: No Insulin Pump: No Joint Replacement: No Oral Surgery: No Pacemaker: No Other Surgery: No Psychiatric History Psychiatric History Hx Psychiatric Treatment: Patient with a hx of schizophrenia, bipolar d/o, depression and anxiety d/o. His last inpatient admission was Dec 19-2016 for schizoaffective. Patient at [facility] from November 2014 to Mar 2015. History of Inpatient Treatment: Yes Guns or firearms in home: No Social History Single, never . Homeless x 4 years. has completed a 9th grade education. Unemployed. Has extensive legal history and was last incarcerated in of this year. Hx Alcohol Use: Yes (OCC) Hx Tobacco Use: Yes (4 TO 5 CIGARETTES/DAY) Hx Substance Use: Yes (marijuana) Substance Use Type: Alcohol, Marijuana Other Substances Used: DRANK A BOTTLE OF WINE TODAY Hx of Substance Use Treatment: No Family Psychiatric History Unknown Allergies-Medications (Allergen,Severity, Reaction): Coded Allergies: shellfish derived (Unverified Allergy, Severe, 03/29/17) aripiprazole (Verified Allergy, Intermediate, Swelling, 03/29/17) peanut (Verified Allergy, Unknown, 03/29/17) Reported Meds & Prescriptions Reported Meds & Active Scripts Active Reported Invega Sustenna Inj (Paliperidone Palmitate) 234 Mg/1.5 Ml Inj 234 Mg IM Q28D Review of Systems Except as stated in HPI: all other systems reviewed are Neg Mental Status Examination Appearance: Appropriate Consciousness: Alert Orientation: x4 Motor Activity: Normal gait Speech: Unremarkable Language: Adequate Fund of Knowledge: Adequate Attention and Concentration: Easily Distracted Memory: Unremarkable Mood: Appropriate Affect: Appropriate Thought Process & Associations: Logical Thought Content: Appropriate, Other (Deneis any paranoid thoufghts ) Hallucination Type: None (at present) Delusion Type: None Suicidal Ideation: No Suicidal Plan: No Suicidal Intention: No Homicidal Ideation: No Homicidal Plan: No Homicidal Intention: No Insight: Poor Judgment: Poor MDM Medical Decision Making Medical Record Reviewed: Yes Assessment/Plan Patient's a 26-year-old male with history of schizophrenia presenting to emergency department voluntarily for psychiatric evaluation. The patient reports that he was walking around for the past 4 days and has been unable to sleep. He then called the police and asked them to bring him to the hospital as he was feeling suicdal. The patient did not make any attempt at harming himself. When he presented to the ED he was placed under a Pandey act by Dr. Quezada and that documentation reads as follows " Patient says he is having paranoid thoughts. he is acting bizarre and making bizarre comments". The patient has slept here in J pod. he has not presented any behavioral concerns and no suicidality. Patient is requesting to be discharged at thsi time and is denying any hallucinations, denies feeling paranoid and denies any suicidal or homicidal ideation, intent or plan. He wants to follow up with [facility]. At this time he does not meet pandey act criteria and is requesting to be diuscharged. Daniella BA. Follow up with [facility]. He will be administered Haldol and Cogentin before he is discharged. Orders Orders Diet Regular Basic (03/29/17 Dinner) Diet Regular Basic (03/30/17 Breakfast) Diet Regular Basic (03/30/17 Lunch) Results Vital Signs Date Time Temp Pulse Resp B/P (MAP) Pulse Ox O2 Delivery O2 Flow Rate FiO2 03/30/17 06:22 58 18 107/56 (73) Room Air 03/30/17 02:31 50 18 119/70 (86) 03/29/17 23:07 51 18 120/58 (78) Diagnosis Primary Impression: Schizoaffective disorder Additional Impression: Cannabis abuse Psychiatrically Cleared: Yes Med/ Other Pt Specific Info: No Change to Meds Disposition: 01 DISCHARGE HOME Condition: Stable Problem Qualifiers Primary Impression: Schizoaffective disorder Qualified Codes: F25.9 - Schizoaffective disorder, unspecified Selene Longoria [facility] Mar 30, 2017 15:41
[2017-03-30] MEDS ORDERED: HALOPERIDOL 5 MG TAB PO ONE (15:45)
[2017-03-30] MEDS ORDERED: BENZTROPINE MESYLATE 1 MG TAB PO ONE (15:45)
[2017-03-30 16:18] VITALS: BP 128/67; PULSE 84; RESP 18; O2SAT 97
--- NOTE | 2017-03-30 16:38 | PD ---
Physical Exam Time Seen by Provider: 16:36 ANY Naranjo has evaluated the patient, lifted the Pandey act and cleared the patient for discharge. Data Data Last Documented VS Vital Signs Date Time Temp Pulse Resp B/P (MAP) Pulse Ox O2 Delivery O2 Flow Rate FiO2 03/30/17 16:18 84 18 128/67 (87) 97 Room Air 03/29/17 11:40 98.1 Orders Orders Complete Blood Count With Diff (03/29/17 06:50) Comprehensive Metabolic Panel (03/29/17 06:50) Psych Screen (03/29/17 06:50) Drug Screen, Random Urine (03/29/17 06:50) Alcohol (Ethanol) (03/29/17 06:50) Diet Regular Basic (03/29/17 Lunch) Diet Regular Basic (03/29/17 Dinner) Diet Regular Basic (03/30/17 Breakfast) Diet Regular Basic (03/30/17 Lunch) Haloperidol (Haldol) (03/30/17 15:45) Benztropine (Cogentin) (03/30/17 15:45) Diet Regular Basic (03/30/17 Dinner) Ed Discharge Order (03/30/17 16:35) Labs Laboratory Tests Test 03/29/17 06:50 03/29/17 08:20 White Blood Count 11.6 TH/MM3 Red Blood Count 4.16 MIL/MM3 Hemoglobin 12.9 GM/DL Hematocrit 37.6 % Mean Corpuscular Volume 90.4 FL Mean Corpuscular Hemoglobin 31.1 PG Mean Corpuscular Hemoglobin Concent 34.4 % Red Cell Distribution Width 13.1 % Platelet Count 316 TH/MM3 Mean Platelet Volume 7.1 FL Neutrophils (%) (Auto) 66.9 % Lymphocytes (%) (Auto) 21.3 % Monocytes (%) (Auto) 9.6 % Eosinophils (%) (Auto) 1.5 % Basophils (%) (Auto) 0.7 % Neutrophils # (Auto) 7.7 TH/MM3 Lymphocytes # (Auto) 2.5 TH/MM3 Monocytes # (Auto) 1.1 TH/MM3 Eosinophils # (Auto) 0.2 TH/MM3 Basophils # (Auto) 0.1 TH/MM3 CBC Comment DIFF FINAL Differential Comment Blood Urea Nitrogen 13 MG/DL Creatinine 0.90 MG/DL Random Glucose 106 MG/DL Total Protein 6.8 GM/DL Albumin 3.7 GM/DL Calcium Level 8.9 MG/DL Alkaline Phosphatase 69 U/L Aspartate Amino Transf (AST/SGOT) 22 U/L Alanine Aminotransferase (ALT/SGPT) 29 U/L Total Bilirubin 0.5 MG/DL Sodium Level 140 MEQ/L Potassium Level 3.6 MEQ/L Chloride Level 103 MEQ/L Carbon Dioxide Level 26.9 MEQ/L Anion Gap 10 MEQ/L Estimat Glomerular Filtration Rate 100 ML/MIN Ethyl Alcohol Level LESS THAN 3 MG/DL Urine Opiates Screen NEG Urine Barbiturates Screen NEG Urine Amphetamines Screen NEG Urine Benzodiazepines Screen NEG Urine Cocaine Screen NEG Urine Cannabinoids Screen POS MDM Supervised Visit with TERESA: No Narrative Course NAY Morton has evaluated the patient, lifted the Pandey act and with the patient for discharge. Patient has planned to follow up at [facility]. Patient contracts safety. Denies suicidal or homicidal ideations. Patient will be provided community resource packet to [facility] for follow-up. Has friends and family for support. Patient is medically cleared for discharge. Diagnosis Primary Impression: Schizoaffective disorder Qualified Codes: F25.9 - Schizoaffective disorder, unspecified Additional Impression: Cannabis abuse Referrals: GISEL (Out patient) [facility] Primary Care Physician Psychiatrist Marck BATRES Behavioral Patient Instructions: General Instructions, Schizoaffective Disorder (ED) Additional Instruction: Contract safety to your self and others Follow-up with psychiatry Follow-up with primary care provider Follow-up with Benny Nino/GISEL Return to the emergency department immediately with worsening of symptoms Med/Other Pt SpecificInfo: No Change to Meds, No Meds Exist/No RX given Disposition: 01 DISCHARGE HOME Condition: Stable Claudine Lawton Mar 30, 2017 16:38
--- NOTE | 2017-03-30 16:38 | PD ---
Physical Exam Time Seen by Provider: 16:36 ANY Naranjo has evaluated the patient, lifted the Pandey act and cleared the patient for discharge. Data Data Last Documented VS Vital Signs Date Time Temp Pulse Resp B/P (MAP) Pulse Ox O2 Delivery O2 Flow Rate FiO2 03/30/17 16:18 84 18 128/67 (87) 97 Room Air 03/29/17 11:40 98.1 Orders Orders Complete Blood Count With Diff (03/29/17 06:50) Comprehensive Metabolic Panel (03/29/17 06:50) Psych Screen (03/29/17 06:50) Drug Screen, Random Urine (03/29/17 06:50) Alcohol (Ethanol) (03/29/17 06:50) Diet Regular Basic (03/29/17 Lunch) Diet Regular Basic (03/29/17 Dinner) Diet Regular Basic (03/30/17 Breakfast) Diet Regular Basic (03/30/17 Lunch) Haloperidol (Haldol) (03/30/17 15:45) Benztropine (Cogentin) (03/30/17 15:45) Diet Regular Basic (03/30/17 Dinner) Ed Discharge Order (03/30/17 16:35) Labs Laboratory Tests Test 03/29/17 06:50 03/29/17 08:20 White Blood Count 11.6 TH/MM3 Red Blood Count 4.16 MIL/MM3 Hemoglobin 12.9 GM/DL Hematocrit 37.6 % Mean Corpuscular Volume 90.4 FL Mean Corpuscular Hemoglobin 31.1 PG Mean Corpuscular Hemoglobin Concent 34.4 % Red Cell Distribution Width 13.1 % Platelet Count 316 TH/MM3 Mean Platelet Volume 7.1 FL Neutrophils (%) (Auto) 66.9 % Lymphocytes (%) (Auto) 21.3 % Monocytes (%) (Auto) 9.6 % Eosinophils (%) (Auto) 1.5 % Basophils (%) (Auto) 0.7 % Neutrophils # (Auto) 7.7 TH/MM3 Lymphocytes # (Auto) 2.5 TH/MM3 Monocytes # (Auto) 1.1 TH/MM3 Eosinophils # (Auto) 0.2 TH/MM3 Basophils # (Auto) 0.1 TH/MM3 CBC Comment DIFF FINAL Differential Comment Blood Urea Nitrogen 13 MG/DL Creatinine 0.90 MG/DL Random Glucose 106 MG/DL Total Protein 6.8 GM/DL Albumin 3.7 GM/DL Calcium Level 8.9 MG/DL Alkaline Phosphatase 69 U/L Aspartate Amino Transf (AST/SGOT) 22 U/L Alanine Aminotransferase (ALT/SGPT) 29 U/L Total Bilirubin 0.5 MG/DL Sodium Level 140 MEQ/L Potassium Level 3.6 MEQ/L Chloride Level 103 MEQ/L Carbon Dioxide Level 26.9 MEQ/L Anion Gap 10 MEQ/L Estimat Glomerular Filtration Rate 100 ML/MIN Ethyl Alcohol Level LESS THAN 3 MG/DL Urine Opiates Screen NEG Urine Barbiturates Screen NEG Urine Amphetamines Screen NEG Urine Benzodiazepines Screen NEG Urine Cocaine Screen NEG Urine Cannabinoids Screen POS MDM Supervised Visit with TERESA: No Narrative Course ANY Morton has evaluated the patient, lifted the Pandey act and with the patient for discharge. Patient has planned to follow up at [facility]. Patient contracts safety. Denies suicidal or homicidal ideations. Patient will be provided community resource packet to [facility] for follow-up. Has friends and family for support. Patient is medically cleared for discharge. Diagnosis Primary Impression: Schizoaffective disorder Qualified Codes: F25.9 - Schizoaffective disorder, unspecified Additional Impression: Cannabis abuse Referrals: GISEL (Out patient) [facility] Primary Care Physician Psychiatrist Marck BATRES Behavioral Patient Instructions: General Instructions, Schizoaffective Disorder (ED) Additional Instruction: Contract safety to your self and others Follow-up with psychiatry Follow-up with primary care provider Follow-up with Benny Nino/GISEL Return to the emergency department immediately with worsening of symptoms Med/Other Pt SpecificInfo: No Change to Meds, No Meds Exist/No RX given Disposition: 01 DISCHARGE HOME Condition: Stable Claudine Lawton Mar 30, 2017 16:38
[2017-03-30 16:53] VITALS: BP 128/67; TEMP 98.1
== END 2017-03-30 17:21 | disposition home or self-care (01) ==
LOC: NEPD 06:23 → NEPJ 03-30 17:21
DX: F25.1 Schizoaffective disorder, depressive type (principal); F12.10 Cannabis abuse, uncomplicated; F17.210 Nicotine dependence, cigarettes, uncomplicated; Z79.899 Other long term (current) drug therapy
CPT/HCPCS: 80053; 80307; 85025; 99284

== ENCOUNTER 2017-04-20 22:15 | Emergency (ER) | payer OTHER ==
[~2017-04-20] VITALS: Ht 180.3 cm; Wt 84.0 kg
[~2017-04-20 22:15] MED LIST changes: -ARIP1TAB12 PO; +HALD50IN IM; +HALO5TAB PO; -IBUP800T23 PO; +PALI234P IM
[2017-04-20 22:29] VITALS: BP 114/64; PULSE 76; RESP 18; TEMP 98.2; O2SAT 95
[2017-04-20 23:12] LABS: AUTOMATED NEUTROPHIL # 7.4 TH/MM3 (1.8-7.7); BASOPHIL # 0.1 TH/MM3 (0-0.2); BASOPHIL % 0.7 % (0.0-2.0); EOSINOPHIL # 0.2 TH/MM3 (0-0.4); EOSINOPHIL % 1.8 % (0.0-4.0); HEMO FLAGS DIFF FINAL; LYMPHOCYTE # 4.2 TH/MM3 (1.0-4.8); MEAN CELL VOLUME 90.4 FL (80.0-100.0); MEAN CORPUSCULAR HEMOGLOBIN 30.6 PG (27.0-34.0); MEAN CORPUSCULAR HGB CONC 33.8 % (32.0-36.0); MONO % 5.7 % (0.0-8.0); NEUT % 58.8 % (16.0-70.0); PLATELET COUNT 382 TH/MM3 (150-450); RED BLOOD COUNT 4.76 MIL/MM3 (4.50-5.90); WHITE BLOOD COUNT 12.6 TH/MM3 (4.0-11.0)
[2017-04-20 23:20] LABS: ANION GAP 14 MEQ/L (5-15); AST (GOT) 42 U/L (15-37); BICARBONATE 20.1 MEQ/L (21.0-32.0); BLOOD UREA NITROGEN 8 MG/DL (7-18); CHLORIDE 108 MEQ/L (98-107); GLOMERULAR FILTRATION RATE 120 ML/MIN (>89); POTASSIUM 3.8 MEQ/L (3.5-5.1); SODIUM (NA) 142 MEQ/L (136-145)
[2017-04-20 23:22] LABS: ACETAMINOPHEN LESS THAN 2.0 MCG/ML (10.0-30.0); ALKALINE PHOSPHATASE 93 U/L (45-117); ALT (GPT) 46 U/L (12-78); TOTAL BILIRUBIN ADULT 0.3 MG/DL (0.2-1.0)
[2017-04-20 23:23] LABS: ALCOHOL 187 MG/DL (0-5)
--- NOTE | 2017-04-20 23:23 | PD ---
HPI Chief Complaint: Psychiatric Symptoms Time Seen by Provider: 23:22 Travel History International Travel<30 days: No Contact w/Intl Traveler<30days: No Traveled to known affect area: No History of Present Illness HPI 26-year-old male came to the emergency room brought in by police as a Pandey act. As per the Pandey act paperwork it says that patient drank more than 2 bottles of wine since he is very sad since he is alone in [place]. Patient also tried to kill himself he says by thinking of walking in front of a traffic. Currently patient is quite intoxicated. He was asleep. When I called his name he picked his head up and mumbled a few words and said that he drank too much and went back to sleep. There was blood work initiated for the Pandey act all patient was on "the wall". [facility] Past Medical History Narrative Medical List of his past medical, surgical, social and family history is reviewed from the nursing note. Medical History: Unable to Obtain Asthma: Yes Bipolar Disorder: Yes Anxiety: Yes Depression: Yes Chemotherapy: No COPD: No Diminished Hearing: No Endocrine: No Gastrointestinal Disorders: No GERD: No Genitourinary: No Hiatal Hernia: No Implanted Vascular Access Dvce: No Kidney Stones: No Musculoskeletal: No Neurologic: No Psychiatric: Yes Reproductive: No Respiratory: No Immunizations Current: Yes Radiation Therapy: No Renal Failure: No Schizophrenia: Yes Sickle Cell Disease: No Thyroid Disease: No Ulcer: No Tetanus Vaccination: < 5 Years Influenza Vaccination: No Past Surgical History Surgical History: Unable to Obtain Abdominal Surgery: Yes (LAP BAND) AICD: No Arteriovenous Shunt: No Ear Surgery: No Endocrine Surgery: No Eye Surgery: No Gynecologic Surgery: No Insulin Pump: No Joint Replacement: No Oral Surgery: No Pacemaker: No Other Surgery: No Social History Alcohol Use: Yes (OCC) Tobacco Use: Yes (4 TO 5 CIGARETTES/DAY) Substance Use: Yes (marijuana) Allergies-Medications (Allergen,Severity, Reaction): Coded Allergies: ipratropium (Unverified Allergy, Severe, 04/23/17) shellfish derived (Unverified Allergy, Severe, 04/23/17) aripiprazole (Verified Allergy, Intermediate, Swelling, 04/23/17) peanut (Verified Allergy, Unknown, 04/23/17) Comments list of his allergies reviewed from the nursing note. Reported Meds & Prescriptions Reported Meds & Active Scripts Active Haldol Decanoate Inj (Haloperidol Decanoate) 50 Mg/Ml Inj 50 Mg IM DIRECTED This dose of Haldol Decanoate is due 01/12. Total dose administered will then be 150mg. Next dose after this one will be due 02/09. Haloperidol 5 Mg Tab 5 Mg PO DAILY@09,13,21 15 Days Continue oral Haldol until instructed otherwise by outpatient provider. Be sure to get your Haldol Decanoate injection. Reported Invega Sustenna Inj (Paliperidone Palmitate) 234 Mg/1.5 Ml Inj 234 Mg IM Q28D Narrative Medication list of his home medications reviewed from the nursing note. Review of Systems ROS Limitations: Intoxication Except as stated in HPI: all other systems reviewed are Neg Physical Exam Narrative GENERAL: Somnolent, intoxicated, slurred speech, wakes up upon calling his name loudly SKIN: Focused skin assessment warm/dry. HEAD: Atraumatic. Normocephalic. EYES: Pupils equal and round. No scleral icterus. No injection or drainage. ENT: No nasal bleeding or discharge. Mucous membranes pink and moist. NECK: Trachea midline. No JVD. CARDIOVASCULAR: Regular rate and rhythm. No murmur appreciated. RESPIRATORY: No accessory muscle use. Clear to auscultation. Breath sounds equal bilaterally. GASTROINTESTINAL: Abdomen soft, non-tender, nondistended. Hepatic and splenic margins not palpable. MUSCULOSKELETAL: No obvious deformities. No clubbing. No cyanosis. No edema. NEUROLOGICAL: Intoxicated. No obvious cranial nerve deficits. Motor grossly within normal limits. Slurred speech. PSYCHIATRIC: Appropriate mood and affect; insight and judgment normal. Data Data Last Documented VS Orders Orders Complete Blood Count With Diff (04/20/17 22:40) Comprehensive Metabolic Panel (04/20/17 22:40) Psych Screen (04/20/17 22:40) Drug Screen, Random Urine (04/20/17 22:40) Alcohol (Ethanol) (04/20/17 22:40) Salicylates (Aspirin) (04/20/17 22:40) Tylenol (Acetaminophen) (04/20/17 22:40) Diet Regular Basic (04/21/17 Breakfast) Ed Discharge Order (04/21/17 11:18) Labs Laboratory Tests Test 04/20/17 22:44 04/21/17 01:40 White Blood Count 12.6 TH/MM3 Red Blood Count 4.76 MIL/MM3 Hemoglobin 14.5 GM/DL Hematocrit 43.0 % Mean Corpuscular Volume 90.4 FL Mean Corpuscular Hemoglobin 30.6 PG Mean Corpuscular Hemoglobin Concent 33.8 % Red Cell Distribution Width 13.0 % Platelet Count 382 TH/MM3 Mean Platelet Volume 6.9 FL Neutrophils (%) (Auto) 58.8 % Lymphocytes (%) (Auto) 33.0 % Monocytes (%) (Auto) 5.7 % Eosinophils (%) (Auto) 1.8 % Basophils (%) (Auto) 0.7 % Neutrophils # (Auto) 7.4 TH/MM3 Lymphocytes # (Auto) 4.2 TH/MM3 Monocytes # (Auto) 0.7 TH/MM3 Eosinophils # (Auto) 0.2 TH/MM3 Basophils # (Auto) 0.1 TH/MM3 CBC Comment DIFF FINAL Differential Comment Blood Urea Nitrogen 8 MG/DL Creatinine 0.77 MG/DL Random Glucose 96 MG/DL Total Protein 8.0 GM/DL Albumin 4.0 GM/DL Calcium Level 8.6 MG/DL Alkaline Phosphatase 93 U/L Aspartate Amino Transf (AST/SGOT) 42 U/L Alanine Aminotransferase (ALT/SGPT) 46 U/L Total Bilirubin 0.3 MG/DL Sodium Level 142 MEQ/L Potassium Level 3.8 MEQ/L Chloride Level 108 MEQ/L Carbon Dioxide Level 20.1 MEQ/L Anion Gap 14 MEQ/L Estimat Glomerular Filtration Rate 120 ML/MIN Salicylates Level 3.5 MG/DL Acetaminophen Level LESS THAN 2.0 MCG/ML Ethyl Alcohol Level 187 MG/DL Urine Opiates Screen NEG Urine Barbiturates Screen NEG Urine Amphetamines Screen NEG Urine Benzodiazepines Screen NEG Urine Cocaine Screen NEG Urine Cannabinoids Screen NEG MDM Medical Decision Making Medical Screen Exam Complete: Yes Emergency Medical Condition: Yes Medical Record Reviewed: Yes Differential Diagnosis Alcohol intoxication, suicidal ideation Narrative Course 11:53 PM patient is medically cleared. He'll require psych screen. Procedures EKG Prior to Arrival: No Diagnosis Primary Impression: Acute alcohol intoxication Qualified Codes: F10.929 - Alcohol use, unspecified with intoxication, unspecified Maria Eugenia Méndez MD Apr 20, 2017 23:23
[2017-04-21 06:11] VITALS: BP 118/57; PULSE 69; RESP 17
--- NOTE | 2017-04-21 10:31 | PD ---
History of Present Illness Chief Complaint: Psychiatric Symptoms Time Seen by Provider: 09:50 Travel History International Travel<30 Days: No Contact w/Intl Traveler<30days: No Known affected area: No Legal Status Legal Status: Pandey Act Pandey Act Signed By: Pam Tran History of Present Illness: History of Present Illness HPI 26-year-old male with history of schizoaffective disorder who is under a Pandey act initiated by law enforcement. As per the Pandey act paperwork it says that patient drank more than 2 bottles of wine since he is very sad since he is alone in [place]. It also states the patient has had thoughts about running into traffic in order to end his life. The patient presented in an intoxicated manner was difficult to interview at the time of his admission to the emergency department. His blood alcohol level was 187. The patient was allowed to remain in [facility] until he was clinically sober and able to participate in psychiatric evaluation. Electronic medical record is reviewed his last inpatient admission was in December 2016, treated for schizoaffective disorder order under the care of Dr. Ramachandran. Patient is seen in [facility]. He is clinically sober. He tells me that he does not remember what he told the police last night and that he was drunk. He goes on to say that it was windy outside and he just sat down by the curb and that's when the police picked him up. He denies any suicidal or homicidal ideation. He denies any previous suicide attempt. Patient does not appear to be experiencing any hallucinations, no delusions, no paranoia. He denies that he is using any other substances. He is requesting to be discharge this morning. He tells me that he is currently not taking any psychiatric medications. PFSH Past Medical History Medical History: Unable to Obtain Asthma: Yes Bipolar Disorder: Yes Anxiety: Yes Depression: Yes Chemotherapy: No COPD: No Diminished Hearing: No Endocrine: No Gastrointestinal Disorders: No GERD: No Genitourinary: No Hiatal Hernia: No Implanted Vascular Access Dvce: No Kidney Stones: No Musculoskeletal: No Neurologic: No Psychiatric: Yes Reproductive: No Respiratory: No Immunizations Current: Yes Radiation Therapy: No Renal Failure: No Schizophrenia: Yes Sickle Cell Disease: No Thyroid Disease: No Ulcer: No Tetanus Vaccination: < 5 Years Influenza Vaccination: No Past Surgical History Surgical History: Unable to Obtain Abdominal Surgery: Yes (LAP BAND) AICD: No Arteriovenous Shunt: No Ear Surgery: No Endocrine Surgery: No Eye Surgery: No Gynecologic Surgery: No Insulin Pump: No Joint Replacement: No Oral Surgery: No Pacemaker: No Other Surgery: No Psychiatric History Psychiatric History Hx Psychiatric Treatment: Patient with a hx of schizoaffective disorder. His last inpatient admission was Dec 192016 for schizoaffective. Patient at [facility] from November 2014 to Mar 2015. History of Inpatient Treatment: Yes Guns or firearms in home: No Social History Reports he was born in [place] and lived his [facility] and [place]. He is staying in [place] with some friends. He is currently unemployed. Single and never . He tells me that he went to [facility] after he got involved to some legal problems as he was stealing some close from [employer]. Hx Alcohol Use: Yes (OCC) Hx Tobacco Use: Yes (4 TO 5 CIGARETTES/DAY) Hx Substance Use: Yes (REPORTS 2 BOTTLES OF WINE TODAY) Substance Use Type: Alcohol Hx of Substance Use Treatment: No Family Psychiatric History Negative Allergies-Medications (Allergen,Severity, Reaction): Coded Allergies: shellfish derived (Unverified Allergy, Severe, 04/20/17) aripiprazole (Verified Allergy, Intermediate, Swelling, 04/20/17) peanut (Verified Allergy, Unknown, 04/20/17) Reported Meds & Prescriptions Reported Meds & Active Scripts Active Reported Invega Sustenna Inj (Paliperidone Palmitate) 234 Mg/1.5 Ml Inj 234 Mg IM Q28D Review of Systems Except as stated in HPI: all other systems reviewed are Neg Mental Status Examination Appearance: Appropriate Consciousness: Alert Orientation: x4 Motor Activity: Normal gait Speech: Unremarkable Language: Adequate Fund of Knowledge: Adequate Attention and Concentration: Adequate Memory: Unremarkable Mood: Appropriate Affect: Appropriate Thought Process & Associations: Intact Thought Content: Appropriate Hallucination Type: None Delusion Type: None Suicidal Ideation: No Suicidal Plan: No Suicidal Intention: No Homicidal Ideation: No Homicidal Plan: No Homicidal Intention: No Insight: Fair Judgment: Impulsive MDM Medical Decision Making Medical Record Reviewed: Yes Assessment/Plan 26-year-old male with history of schizoaffective disorder who is under a Pandey act initiated by law enforcement. As per the Pandey act paperwork it says that patient drank more than 2 bottles of wine since he is very sad since he is alone in [place]. It also states the patient has had thoughts about running into traffic in order to end his life. The patient presented in an intoxicated manner was difficult to interview at the time of his admission to the emergency department. His blood alcohol level was 187. The patient was allowed to remain in [facility] until he was clinically sober and able to participate in psychiatric evaluation. No suicidal or homicidal ideation, intent or plan, No psychosis. No evidence of unstable mental illness as defined under the Pandey act. Does not meet criteria for Pandey act at this time. . Lift Pandey act. Psychiatrically clear for discharge. Orders Orders Complete Blood Count With Diff (04/20/17 22:40) Comprehensive Metabolic Panel (04/20/17 22:40) Psych Screen (04/20/17 22:40) Drug Screen, Random Urine (04/20/17 22:40) Alcohol (Ethanol) (04/20/17 22:40) Salicylates (Aspirin) (04/20/17 22:40) Tylenol (Acetaminophen) (04/20/17 22:40) Diet Regular Basic (04/21/17 Breakfast) Results Vital Signs Date Time Temp Pulse Resp B/P (MAP) Pulse Ox O2 Delivery O2 Flow Rate FiO2 04/21/17 06:11 69 17 118/57 (77) Room Air 04/20/17 22:29 98.2 76 18 114/64 (81) 95 Laboratory Tests Test 04/20/17 22:44 04/21/17 01:40 White Blood Count 12.6 Red Blood Count 4.76 Hemoglobin 14.5 Hematocrit 43.0 Mean Corpuscular Volume 90.4 Mean Corpuscular Hemoglobin 30.6 Mean Corpuscular Hemoglobin Concent 33.8 Red Cell Distribution Width 13.0 Platelet Count 382 Mean Platelet Volume 6.9 Neutrophils (%) (Auto) 58.8 Lymphocytes (%) (Auto) 33.0 Monocytes (%) (Auto) 5.7 Eosinophils (%) (Auto) 1.8 Basophils (%) (Auto) 0.7 Neutrophils # (Auto) 7.4 Lymphocytes # (Auto) 4.2 Monocytes # (Auto) 0.7 Eosinophils # (Auto) 0.2 Basophils # (Auto) 0.1 CBC Comment DIFF FINAL Differential Comment Blood Urea Nitrogen 8 Creatinine 0.77 Random Glucose 96 Total Protein 8.0 Albumin 4.0 Calcium Level 8.6 Alkaline Phosphatase 93 Aspartate Amino Transf (AST/SGOT) 42 Alanine Aminotransferase (ALT/SGPT) 46 Total Bilirubin 0.3 Sodium Level 142 Potassium Level 3.8 Chloride Level 108 Carbon Dioxide Level 20.1 Anion Gap 14 Estimat Glomerular Filtration Rate 120 Salicylates Level 3.5 Acetaminophen Level LESS THAN 2.0 Ethyl Alcohol Level 187 Urine Opiates Screen NEG Urine Barbiturates Screen NEG Urine Amphetamines Screen NEG Urine Benzodiazepines Screen NEG Urine Cocaine Screen NEG Urine Cannabinoids Screen NEG Diagnosis Primary Impression: Acute alcohol intoxication Psychiatrically Cleared: Yes Med/ Other Pt Specific Info: No Meds Exist/No RX given Disposition: 01 DISCHARGE HOME Condition: Stable Problem Qualifiers Primary Impression: Acute alcohol intoxication Qualified Codes: F10.929 - Alcohol use, unspecified with intoxication, unspecified Selene Longoria [facility] Apr 21, 2017 10:31
--- NOTE | 2017-04-21 11:20 | PD ---
Physical Exam Time Seen by Provider: 11:10 Data Data Last Documented VS Vital Signs Date Time Temp Pulse Resp B/P (MAP) Pulse Ox O2 Delivery O2 Flow Rate FiO2 04/21/17 06:11 69 17 118/57 (77) Room Air 04/20/17 22:29 98.2 95 Orders Orders Complete Blood Count With Diff (04/20/17 22:40) Comprehensive Metabolic Panel (04/20/17 22:40) Psych Screen (04/20/17 22:40) Drug Screen, Random Urine (04/20/17 22:40) Alcohol (Ethanol) (04/20/17 22:40) Salicylates (Aspirin) (04/20/17 22:40) Tylenol (Acetaminophen) (04/20/17 22:40) Diet Regular Basic (04/21/17 Breakfast) Ed Discharge Order (04/21/17 11:18) Labs Laboratory Tests Test 04/20/17 22:44 04/21/17 01:40 White Blood Count 12.6 TH/MM3 Red Blood Count 4.76 MIL/MM3 Hemoglobin 14.5 GM/DL Hematocrit 43.0 % Mean Corpuscular Volume 90.4 FL Mean Corpuscular Hemoglobin 30.6 PG Mean Corpuscular Hemoglobin Concent 33.8 % Red Cell Distribution Width 13.0 % Platelet Count 382 TH/MM3 Mean Platelet Volume 6.9 FL Neutrophils (%) (Auto) 58.8 % Lymphocytes (%) (Auto) 33.0 % Monocytes (%) (Auto) 5.7 % Eosinophils (%) (Auto) 1.8 % Basophils (%) (Auto) 0.7 % Neutrophils # (Auto) 7.4 TH/MM3 Lymphocytes # (Auto) 4.2 TH/MM3 Monocytes # (Auto) 0.7 TH/MM3 Eosinophils # (Auto) 0.2 TH/MM3 Basophils # (Auto) 0.1 TH/MM3 CBC Comment DIFF FINAL Differential Comment Blood Urea Nitrogen 8 MG/DL Creatinine 0.77 MG/DL Random Glucose 96 MG/DL Total Protein 8.0 GM/DL Albumin 4.0 GM/DL Calcium Level 8.6 MG/DL Alkaline Phosphatase 93 U/L Aspartate Amino Transf (AST/SGOT) 42 U/L Alanine Aminotransferase (ALT/SGPT) 46 U/L Total Bilirubin 0.3 MG/DL Sodium Level 142 MEQ/L Potassium Level 3.8 MEQ/L Chloride Level 108 MEQ/L Carbon Dioxide Level 20.1 MEQ/L Anion Gap 14 MEQ/L Estimat Glomerular Filtration Rate 120 ML/MIN Salicylates Level 3.5 MG/DL Acetaminophen Level LESS THAN 2.0 MCG/ML Ethyl Alcohol Level 187 MG/DL Urine Opiates Screen NEG Urine Barbiturates Screen NEG Urine Amphetamines Screen NEG Urine Benzodiazepines Screen NEG Urine Cocaine Screen NEG Urine Cannabinoids Screen NEG MDM Medical Record Reviewed: Yes Supervised Visit with TERESA: No Narrative Course Please see previous providers notes. This patient has been seen by psychiatry and his Pandey act has been lifted and he has been cleared by psychiatry. He has no medical plane solid warrant further hospitalization. He is stable for discharge. Diagnosis Primary Impression: Acute alcohol intoxication Qualified Codes: F10.929 - Alcohol use, unspecified with intoxication, unspecified Disposition: 01 DISCHARGE HOME Condition: Stable Lavon Carter Apr 21, 2017 11:20
[2017-04-21 12:14] VITALS: BP 118/57; PULSE 69; RESP 17
== END 2017-04-21 13:09 | disposition home or self-care (01) ==
LOC: NEPC 22:15 → NEPJ 04-21 13:09
DX: F10.929 Alcohol use, unspecified with intoxication, unspecified (principal); F31.9 Bipolar disorder, unspecified; F41.9 Anxiety disorder, unspecified; F20.9 Schizophrenia, unspecified; J45.909 Unspecified asthma, uncomplicated
CPT/HCPCS: 80053; 80307; 85025; 99283

== ENCOUNTER 2017-04-23 00:43 | Emergency (ER) | payer OTHER ==
[~2017-04-23] VITALS: Ht 172.7 cm; Wt 65.0 kg
[2017-04-23 00:59] VITALS: BP 148/72; PULSE 109; RESP 15; O2SAT 95
--- NOTE | 2017-04-23 01:00 | PD ---
HPI Chief Complaint: act Time Seen by Provider: 00:48 Travel History International Travel<30 days: No Contact w/Intl Traveler<30days: No Traveled to known affect area: No History of Present Illness HPI 26-year-old white male known to the ER for multiple ER admissions presents today under act by PD. The patient was found to be intoxicated. He was brought out to the [facility] long-term but when he had presented at the long-term he stated that he was feeling depressed and suicidal. He was then advised to come to the ER. The patient here states that he is not truly suicidal. He did not want to go to long-term and would've rather come here. He denies any medical complaints. Admits alcohol intoxication. PFSH Past Medical History Asthma: Yes Bipolar Disorder: Yes Anxiety: Yes Depression: Yes Chemotherapy: No COPD: No Diminished Hearing: No Endocrine: No Gastrointestinal Disorders: No GERD: No Genitourinary: No Hiatal Hernia: No Implanted Vascular Access Dvce: No Kidney Stones: No Musculoskeletal: No Neurologic: No Psychiatric: Yes Reproductive: No Respiratory: No Immunizations Current: Yes Radiation Therapy: No Renal Failure: No Schizophrenia: Yes Sickle Cell Disease: No Thyroid Disease: No Ulcer: No Past Surgical History Abdominal Surgery: Yes (LAP BAND) AICD: No Arteriovenous Shunt: No Ear Surgery: No Endocrine Surgery: No Eye Surgery: No Gynecologic Surgery: No Insulin Pump: No Joint Replacement: No Oral Surgery: No Pacemaker: No Other Surgery: No Social History Alcohol Use: Yes (OCC) Tobacco Use: Yes (4 TO 5 CIGARETTES/DAY) Substance Use: Yes (REPORTS 2 BOTTLES OF WINE TODAY) Allergies-Medications (Allergen,Severity, Reaction): Coded Allergies: shellfish derived (Unverified Allergy, Severe, 04/23/17) aripiprazole (Verified Allergy, Intermediate, Swelling, 04/23/17) peanut (Verified Allergy, Unknown, 04/23/17) Reported Meds & Prescriptions Reported Meds & Active Scripts Active Reported Invega Sustenna Inj (Paliperidone Palmitate) 234 Mg/1.5 Ml Inj 234 Mg IM Q28D Review of Systems ROS Limitations: Intoxication Physical Exam Narrative GENERAL: Well-nourished, well-developed patient. Patient is intoxicated. SKIN: Warm and dry. HEAD: Normocephalic and atraumatic. EYES: No scleral icterus. No injection or drainage. ENT: No nasal drainage noted. Mucous membranes pink. Airway patent. NECK: Supple, trachea midline. Moves head freely without obvious discomfort. CARDIOVASCULAR: Regular rate and rhythm without murmurs, gallops, or rubs. RESPIRATORY: Breath sounds equal bilaterally. No accessory muscle use. GASTROINTESTINAL: Abdomen soft, non-tender, nondistended. EXTREMITIES: No cyanosis or edema. BACK: Nontender without obvious deformity. No CVA tenderness. NEURO: Patient is alert and oriented. no sensorimotor deficits. Nonfocal. Slurred speech. PSYCH: No delusions. No auditory or visual hallucinations. Data Data Last Documented VS Vital Signs Date Time Temp Pulse Resp B/P (MAP) Pulse Ox O2 Delivery O2 Flow Rate FiO2 04/23/17 00:59 109 15 148/72 (97) 95 MDM Medical Decision Making Medical Screen Exam Complete: Yes Emergency Medical Condition: Yes Medical Record Reviewed: Yes Differential Diagnosis Differential diagnoses: Alcohol intoxication, substance abuse, electrolyte abnormality, malingering Narrative Course The patient is intoxicated. This is a patient known to the medical staff or myself. The patient will be allowed to sleep off here in the ER. Once he exhibits sobriety is March[place] act will be lifted. He denies suicidal ideation or homicidal ideation. Diagnosis Primary Impression: Acute alcohol intoxication Qualified Codes: F10.929 - Alcohol use, unspecified with intoxication, unspecified Patient Instructions: General Instructions Additional Instructions: Rest. Increase fluids. Avoid alcohol. Avoid illegal substances. Follow-up with [facility] for detox. Do not operate a car or any heavy machinery under the influence of alcohol or drugs. Follow-up with a medical doctor this week. Return to the ER for emergencies Med/Other Pt SpecificInfo: No Meds Exist/No RX given Disposition: 01 DISCHARGE HOME Condition: Stable Rufino Ag Apr 23, 2017 01:00
== END 2017-04-23 06:44 | disposition home or self-care (01) ==
LOC: NEPD 00:43
DX: F10.929 Alcohol use, unspecified with intoxication, unspecified (principal); F17.210 Nicotine dependence, cigarettes, uncomplicated
CPT/HCPCS: 99281

== ENCOUNTER 2017-10-09 19:06 | Emergency (ER) | payer OTHER ==
[~2017-10-09] VITALS: Ht 177.8 cm; Wt 86.0 kg
[2017-10-09] MEDS ORDERED: LORazepam 2 MG/ML VIAL IM ONE ×2 (19:30→22:45)
[2017-10-09] MEDS ORDERED: HALOPERIDOL LACTATE 5 MG/ML AMP IM ONE (19:30)
--- NOTE | 2017-10-09 20:15 | PD ---
HPI Chief Complaint: Psychiatric Symptoms Time Seen by Provider: 19:22 Travel History International Travel<30 days: No (fernando ) Contact w/Intl Traveler<30days: No (fernando) Traveled to known affect area: No (fernando ) History of Present Illness HPI 18-year-old male was brought in by EMS. Patient was found in the bushes this afternoon. Patient was sleeping and became violent when he was woke up by the police. Patient was brought in for evaluation. Patient is unable to provide any information. Medical record reveals patient has been to the emergency room in the past for alcohol intoxication and schizoaffective disorder and psychosis. PFSH Past Medical History Arthritis: No Asthma: Yes Bipolar Disorder: Yes Anxiety: Yes Depression: Yes Chemotherapy: No COPD: No Diminished Hearing: No Endocrine: No Gastrointestinal Disorders: No GERD: No Genitourinary: No Hiatal Hernia: No Implanted Vascular Access Dvce: No Kidney Stones: No Musculoskeletal: No Neurologic: No Psychiatric: Yes Reproductive: No Respiratory: Yes Immunizations Current: Yes Radiation Therapy: No Renal Failure: No Schizophrenia: Yes Sickle Cell Disease: No Thyroid Disease: No Ulcer: No ?: Unknown Past Surgical History Abdominal Surgery: Yes (LAP BAND) AICD: No Arteriovenous Shunt: No Ear Surgery: No Endocrine Surgery: No Eye Surgery: No Gynecologic Surgery: No Insulin Pump: No Joint Replacement: No Oral Surgery: No Pacemaker: No Social History Alcohol Use: Yes (daily) Tobacco Use: Yes (4 TO 5 CIGARETTES/DAY) Substance Use: Yes (marijuana) Allergies-Medications (Allergen,Severity, Reaction): Coded Allergies: ipratropium (Unverified Allergy, Severe, 04/23/17) shellfish derived (Unverified Allergy, Severe, 04/23/17) aripiprazole (Verified Allergy, Intermediate, Swelling, 04/23/17) peanut (Verified Allergy, Unknown, 04/23/17) Reported Meds & Prescriptions Reported Meds & Active Scripts Active Haldol Decanoate Inj (Haloperidol Decanoate) 50 Mg/Ml Inj 50 Mg IM DIRECTED This dose of Haldol Decanoate is due 01/12. Total dose administered will then be 150mg. Next dose after this one will be due 02/09. Haloperidol 5 Mg Tab 5 Mg PO DAILY@09,13,21 15 Days Continue oral Haldol until instructed otherwise by outpatient provider. Be sure to get your Haldol Decanoate injection. Reported Invega Sustenna Inj (Paliperidone Palmitate) 234 Mg/1.5 Ml Inj 234 Mg IM Q28D Review of Systems ROS Limitations: Altered Mental Status General / Constitutional: No: Fever Eyes: No: Visual changes HENT: No: Headaches Cardiovascular: No: Chest Pain or Discomfort Respiratory: No: Shortness of Breath Gastrointestinal: No: Abdominal Pain Genitourinary: No: Dysuria Musculoskeletal: No: Pain Skin: No Rash Neurologic: No: Weakness Psychiatric: No: Depression Endocrine: No: Polydipsia Hematologic/Lymphatic: No: Easy Bruising Physical Exam Narrative GENERAL: Well-nourished, well-developed patient. SKIN: Focused skin assessment warm/dry. HEAD: Normocephalic. EYES: No scleral icterus. No injection or drainage. NECK: Supple, trachea midline. No JVD or lymphadenopathy. CARDIOVASCULAR: Regular rate and rhythm without murmurs, gallops, or rubs. RESPIRATORY: Breath sounds equal bilaterally. No accessory muscle use. GASTROINTESTINAL: Abdomen soft, non-tender, nondistended. MUSCULOSKELETAL: No cyanosis, or edema. BACK: Nontender without obvious deformity. No CVA tenderness. Neurologic exam: Patient is combative screaming and cursing. Patient moves all extremity well. No obvious focal neurologic deficit. Data Data Orders Orders Haloperidol Inj (Haldol Inj) (10/09/17 19:30) Lorazepam Inj (Ativan Inj) (10/09/17 19:30) Complete Blood Count With Diff (10/09/17 19:23) Comprehensive Metabolic Panel (10/09/17 19:23) Thyroid Stimulating Hormone (10/09/17 19:23) Psych Screen (10/09/17 19:23) Drug Screen, Random Urine (10/09/17 19:23) Alcohol (Ethanol) (10/09/17 19:23) Restraints Violent (10/09/17 20:05) Labs Laboratory Tests Test 10/09/17 20:35 10/09/17 20:40 Urine Opiates Screen NEG Urine Barbiturates Screen NEG Urine Amphetamines Screen NEG Urine Benzodiazepines Screen NEG Urine Cocaine Screen NEG Urine Cannabinoids Screen POS White Blood Count 11.9 TH/MM3 Red Blood Count 4.79 MIL/MM3 Hemoglobin 14.4 GM/DL Hematocrit 43.0 % Mean Corpuscular Volume 89.8 FL Mean Corpuscular Hemoglobin 30.1 PG Mean Corpuscular Hemoglobin Concent 33.5 % Red Cell Distribution Width 12.7 % Platelet Count 344 TH/MM3 Mean Platelet Volume 6.8 FL Neutrophils (%) (Auto) 76.2 % Lymphocytes (%) (Auto) 17.3 % Monocytes (%) (Auto) 5.6 % Eosinophils (%) (Auto) 0.5 % Basophils (%) (Auto) 0.4 % Neutrophils # (Auto) 9.1 TH/MM3 Lymphocytes # (Auto) 2.1 TH/MM3 Monocytes # (Auto) 0.7 TH/MM3 Eosinophils # (Auto) 0.1 TH/MM3 Basophils # (Auto) 0.0 TH/MM3 CBC Comment DIFF FINAL Differential Comment Blood Urea Nitrogen 11 MG/DL Creatinine 0.91 MG/DL Random Glucose 100 MG/DL Total Protein 7.1 GM/DL Albumin 3.9 GM/DL Calcium Level 8.4 MG/DL Alkaline Phosphatase 79 U/L Aspartate Amino Transf (AST/SGOT) 27 U/L Alanine Aminotransferase (ALT/SGPT) 32 U/L Total Bilirubin 0.5 MG/DL Sodium Level 144 MEQ/L Potassium Level 3.3 MEQ/L Chloride Level 110 MEQ/L Carbon Dioxide Level 22.9 MEQ/L Anion Gap 11 MEQ/L Estimat Glomerular Filtration Rate 99 ML/MIN Thyroid Stimulating Hormone 3rd Gen 0.431 uIU/ML Ethyl Alcohol Level 267 MG/DL [facility] Medical Decision Making Medical Screen Exam Complete: Yes Emergency Medical Condition: Yes Interpretation(s) 22:31 PM. CBC WBC 11.9. 76 neutrophil. Potassium 3.3. Chloride 110. Calcium 8.4. Urine drug screen positive for cannabis. Alcohol 267. Differential Diagnosis Differential diagnosis including schizoaffective disorder, psychosis, drug- induced mood disorder. Narrative Course 26-year-old male was brought in for psychiatric evaluation. Patient was combative, violent and screaming. History of schizoaffective disorder and psychosis and alcohol abuse. Haldol 5 mg IM. Ativan 2 mg IM. 20 2:33 PM. Patient is medically cleared for psychiatric evaluation. Tim Lucia MD October 09, 2017 20:15
[2017-10-09 21:13] LABS: AUTOMATED NEUTROPHIL # 9.1 TH/MM3 (1.8-7.7); BASOPHIL % 0.4 % (0.0-2.0); EOSINOPHIL # 0.1 TH/MM3 (0-0.4); EOSINOPHIL % 0.5 % (0.0-4.0); HEMOGLOBIN 14.4 GM/DL (13.0-17.0); LYMPH % 17.3 % (9.0-44.0); LYMPHOCYTE # 2.1 TH/MM3 (1.0-4.8); MEAN CELL VOLUME 89.8 FL (80.0-100.0); MEAN CORPUSCULAR HEMOGLOBIN 30.1 PG (27.0-34.0); MEAN CORPUSCULAR HGB CONC 33.5 % (32.0-36.0); MEAN PLATELET VOLUME 6.8 FL (7.0-11.0); MONO % 5.6 % (0.0-8.0); MONOCYTE # 0.7 TH/MM3 (0-0.9); NEUT % 76.2 % (16.0-70.0); PLATELET COUNT 344 TH/MM3 (150-450); RED BLOOD COUNT 4.79 MIL/MM3 (4.50-5.90); RED CELL DISTRIBUTION WIDTH 12.7 % (11.6-17.2); WHITE BLOOD COUNT 11.9 TH/MM3 (4.0-11.0)
[2017-10-09 21:37] LABS: ALBUMIN 3.9 GM/DL (3.4-5.0); AST (GOT) 27 U/L (15-37); BICARBONATE 22.9 MEQ/L (21.0-32.0); BLOOD UREA NITROGEN 11 MG/DL (7-18); CALCIUM 8.4 MG/DL (8.5-10.1); CHLORIDE 110 MEQ/L (98-107); CREATININE 0.91 MG/DL (0.60-1.30); GLOMERULAR FILTRATION RATE 99 ML/MIN (>89); GLUCOSE,RANDOM 100 MG/DL (74-106); SODIUM (NA) 144 MEQ/L (136-145)
[2017-10-09 21:38] LABS: ALT (GPT) 32 U/L (12-78)
[2017-10-09 21:48] LABS: ALKALINE PHOSPHATASE 79 U/L (45-117); TOTAL BILIRUBIN ADULT 0.5 MG/DL (0.2-1.0); TOTAL PROTEIN 7.1 GM/DL (6.4-8.2)
[2017-10-10 02:00] VITALS: BP 137/94; PULSE 98; RESP 16; O2SAT 98
[2017-10-10 05:32] VITALS: BP 128/67; PULSE 80; RESP 20; TEMP 98.3; O2SAT 98
[2017-10-10 11:11] VITALS: BP 122/74; PULSE 78; RESP 18; O2SAT 97
--- NOTE | 2017-10-10 13:39 | PD ---
History of Present Illness Chief Complaint: Psychiatric Symptoms Time Seen by Provider: 13:00 Travel History International Travel<30 Days: No (fernando ) Contact w/Intl Traveler<30days: No (fernando) Known affected area: No (fernando ) Legal Status Legal Status: Pandey Act Pandey Act Signed By: [facility] Pandey Act Comment: Pt staed multiple times that he wanted to kill himself. History of Present Illness: This is a 26-year-old single, male who presents to the emergency department under a Pandey act for reportedly making suicidal statements. He is known to this facility and appears to be admitted inpatient here approximately once a year. Reviewed electronic medical record, labs, discuss case with staff. Patient was evaluated in his room and J pod. Is awake, alert, and oriented 4. He reports that he "got drunk on a case of PVR". He states that he is homeless and lives in a tent [place] the [facility]. He states that he follows up at [facility]. His speech is clear and logical. He does have an accident at times is difficult to tell if he is searching for a word or if his thought process may be somewhat disorganized. However he denies being suicidal, homicidal, having auditory or visual hallucinations. He does admit that he was quite intoxicated yesterday and may have made inappropriate remarks. PFSH Past Medical History Arthritis: No Asthma: Yes Bipolar Disorder: Yes Anxiety: Yes Depression: Yes Chemotherapy: No COPD: No Diminished Hearing: No Endocrine: No Gastrointestinal Disorders: No GERD: No Genitourinary: No Hiatal Hernia: No Implanted Vascular Access Dvce: No Kidney Stones: No Musculoskeletal: No Neurologic: No Psychiatric: Yes Reproductive: No Respiratory: Yes Immunizations Current: Yes Radiation Therapy: No Renal Failure: No Schizophrenia: Yes Sickle Cell Disease: No Thyroid Disease: No Ulcer: No ?: Unknown Past Surgical History Abdominal Surgery: Yes (LAP BAND) AICD: No Arteriovenous Shunt: No Ear Surgery: No Endocrine Surgery: No Eye Surgery: No Gynecologic Surgery: No Insulin Pump: No Joint Replacement: No Oral Surgery: No Pacemaker: No Psychiatric History Psychiatric History Hx Psychiatric Treatment: Patient with a hx of schizoaffective disorder. His last inpatient admission was Dec 19-2016 for schizoaffective. Patient at [facility] from November 2014 to Mar 2015. History of Inpatient Treatment: Yes Social History Hx Alcohol Use: Yes (daily) Hx Tobacco Use: Yes (4 TO 5 CIGARETTES/DAY) Hx Substance Use: Yes Substance Use Type: Alcohol, Marijuana, Cocaine Other Substances Used: Pt states he uses marijuana, ETOH, cocaine &crystal meth. Hx of Substance Use Treatment: No Allergies-Medications (Allergen,Severity, Reaction): Coded Allergies: ipratropium (Unverified Allergy, Severe, 04/23/17) shellfish derived (Unverified Allergy, Severe, 04/23/17) aripiprazole (Verified Allergy, Intermediate, Swelling, 04/23/17) peanut (Verified Allergy, Unknown, 04/23/17) Reported Meds & Prescriptions Reported Meds & Active Scripts Active Haldol Decanoate Inj (Haloperidol Decanoate) 50 Mg/Ml Inj 50 Mg IM DIRECTED This dose of Haldol Decanoate is due 01/12. Total dose administered will then be 150mg. Next dose after this one will be due 02/09. Haloperidol 5 Mg Tab 5 Mg PO DAILY@09,13,21 15 Days Continue oral Haldol until instructed otherwise by outpatient provider. Be sure to get your Haldol Decanoate injection. Reported Invega Sustenna Inj (Paliperidone Palmitate) 234 Mg/1.5 Ml Inj 234 Mg IM Q28D Mental Status Examination Appearance: Dirty, Disheveled Consciousness: Alert Orientation: x4 Motor Activity: Normal gait Speech: Unremarkable Language: Adequate Fund of Knowledge: Adequate Attention and Concentration: Adequate Memory: Unremarkable Mood: Appropriate Affect: Appropriate Thought Process & Associations: Intact Thought Content: Appropriate, Bizarre thinking Hallucination Type: None Delusion Type: Bizarre Suicidal Ideation: No Suicidal Plan: No Suicidal Intention: No Homicidal Ideation: No Homicidal Plan: No Homicidal Intention: No Insight: Fair Judgment: Adequate [facility] Medical Decision Making Medical Record Reviewed: Yes Assessment/Plan This is a 26-year-old single, male who presents under a Pandey act for reportedly making suicidal statements. Upon examination today patient is alert and oriented 4. His mood is good his affect euthymic. He reports that he got drunk last night and probably made some "stupid statements". Today he denies being suicidal or homicidal and denies hearing voices or having visual hallucinations. His affect is sometimes a little bizarre with some of his statements however this time he does not appear to pose a danger to himself or others. He therefore does not meet Pandey act criteria. Consulted with ANY Mcallister who also assessed the patient and agreed with my assessment. The Pandey act has been lifted. Patient will be discharged with instructions to follow-up at [facility] and to return if his condition should worsen. Orders Orders Haloperidol Inj (Haldol Inj) (10/09/17 19:30) Lorazepam Inj (Ativan Inj) (10/09/17 19:30) Complete Blood Count With Diff (10/09/17 19:23) Comprehensive Metabolic Panel (10/09/17 19:23) Thyroid Stimulating Hormone (10/09/17 19:23) Psych Screen (10/09/17 19:23) Drug Screen, Random Urine (10/09/17 19:23) Alcohol (Ethanol) (10/09/17 19:23) Restraints Violent (10/09/17 20:05) Lorazepam Inj (Ativan Inj) (10/09/17 22:45) Diet Regular Basic (10/10/17 Breakfast) Diet Regular Basic (10/10/17 Lunch) Results Vital Signs Date Time Temp Pulse Resp B/P (MAP) Pulse Ox O2 Delivery O2 Flow Rate FiO2 10/10/17 11:11 78 18 122/74 (90) 97 Room Air 10/10/17 05:32 98.3 80 20 128/67 (87) 98 Room Air 10/10/17 02:00 98 16 137/94 (108) 98 Room Air Laboratory Tests Test 10/09/17 20:35 10/09/17 20:40 Urine Opiates Screen NEG Urine Barbiturates Screen NEG Urine Amphetamines Screen NEG Urine Benzodiazepines Screen NEG Urine Cocaine Screen NEG Urine Cannabinoids Screen POS White Blood Count 11.9 Red Blood Count 4.79 Hemoglobin 14.4 Hematocrit 43.0 Mean Corpuscular Volume 89.8 Mean Corpuscular Hemoglobin 30.1 Mean Corpuscular Hemoglobin Concent 33.5 Red Cell Distribution Width 12.7 Platelet Count 344 Mean Platelet Volume 6.8 Neutrophils (%) (Auto) 76.2 Lymphocytes (%) (Auto) 17.3 Monocytes (%) (Auto) 5.6 Eosinophils (%) (Auto) 0.5 Basophils (%) (Auto) 0.4 Neutrophils # (Auto) 9.1 Lymphocytes # (Auto) 2.1 Monocytes # (Auto) 0.7 Eosinophils # (Auto) 0.1 Basophils # (Auto) 0.0 CBC Comment DIFF FINAL Differential Comment Blood Urea Nitrogen 11 Creatinine 0.91 Random Glucose 100 Total Protein 7.1 Albumin 3.9 Calcium Level 8.4 Alkaline Phosphatase 79 Aspartate Amino Transf (AST/SGOT) 27 Alanine Aminotransferase (ALT/SGPT) 32 Total Bilirubin 0.5 Sodium Level 144 Potassium Level 3.3 Chloride Level 110 Carbon Dioxide Level 22.9 Anion Gap 11 Estimat Glomerular Filtration Rate 99 Thyroid Stimulating Hormone 3rd Gen 0.431 Ethyl Alcohol Level 267 Diagnosis Primary Impression: Uncomplicated alcohol abuse Michelle Vicente October 10, 2017 13:39
--- NOTE | 2017-10-10 14:33 | PD ---
Data Data Last Documented VS Vital Signs Date Time Temp Pulse Resp B/P (MAP) Pulse Ox O2 Delivery O2 Flow Rate FiO2 10/10/17 11:11 78 18 122/74 (90) 97 Room Air 10/10/17 05:32 98.3 Orders Orders Haloperidol Inj (Haldol Inj) (10/09/17 19:30) Lorazepam Inj (Ativan Inj) (10/09/17 19:30) Complete Blood Count With Diff (10/09/17 19:23) Comprehensive Metabolic Panel (10/09/17 19:23) Thyroid Stimulating Hormone (10/09/17 19:23) Psych Screen (10/09/17 19:23) Drug Screen, Random Urine (10/09/17 19:23) Alcohol (Ethanol) (10/09/17 19:23) Restraints Violent (10/09/17 20:05) Lorazepam Inj (Ativan Inj) (10/09/17 22:45) Diet Regular Basic (10/10/17 Breakfast) Diet Regular Basic (10/10/17 Lunch) Ed Discharge Order (10/10/17 14:32) Labs Laboratory Tests Test 10/09/17 20:35 10/09/17 20:40 Urine Opiates Screen NEG Urine Barbiturates Screen NEG Urine Amphetamines Screen NEG Urine Benzodiazepines Screen NEG Urine Cocaine Screen NEG Urine Cannabinoids Screen POS White Blood Count 11.9 TH/MM3 Red Blood Count 4.79 MIL/MM3 Hemoglobin 14.4 GM/DL Hematocrit 43.0 % Mean Corpuscular Volume 89.8 FL Mean Corpuscular Hemoglobin 30.1 PG Mean Corpuscular Hemoglobin Concent 33.5 % Red Cell Distribution Width 12.7 % Platelet Count 344 TH/MM3 Mean Platelet Volume 6.8 FL Neutrophils (%) (Auto) 76.2 % Lymphocytes (%) (Auto) 17.3 % Monocytes (%) (Auto) 5.6 % Eosinophils (%) (Auto) 0.5 % Basophils (%) (Auto) 0.4 % Neutrophils # (Auto) 9.1 TH/MM3 Lymphocytes # (Auto) 2.1 TH/MM3 Monocytes # (Auto) 0.7 TH/MM3 Eosinophils # (Auto) 0.1 TH/MM3 Basophils # (Auto) 0.0 TH/MM3 CBC Comment DIFF FINAL Differential Comment Blood Urea Nitrogen 11 MG/DL Creatinine 0.91 MG/DL Random Glucose 100 MG/DL Total Protein 7.1 GM/DL Albumin 3.9 GM/DL Calcium Level 8.4 MG/DL Alkaline Phosphatase 79 U/L Aspartate Amino Transf (AST/SGOT) 27 U/L Alanine Aminotransferase (ALT/SGPT) 32 U/L Total Bilirubin 0.5 MG/DL Sodium Level 144 MEQ/L Potassium Level 3.3 MEQ/L Chloride Level 110 MEQ/L Carbon Dioxide Level 22.9 MEQ/L Anion Gap 11 MEQ/L Estimat Glomerular Filtration Rate 99 ML/MIN Thyroid Stimulating Hormone 3rd Gen 0.431 uIU/ML Ethyl Alcohol Level 267 MG/DL [facility] Medical Record Reviewed: Yes Supervised Visit with TERESA: No Narrative Course This patient has been cleared by psychiatry. He has no medical issues that would warrant further hospitalization. He is stable for discharge. Diagnosis Primary Impression: Uncomplicated alcohol abuse Lavon Carter October 10, 2017 14:33
== END 2017-10-10 15:08 | disposition home or self-care (01) ==
LOC: NEDAMB 19:06 → NEPJ 10-10 15:08
DX: F10.10 Alcohol abuse, uncomplicated (principal); Y90.8 Blood alcohol level of 240 mg/100 ml or more; F25.9 Schizoaffective disorder, unspecified; J45.909 Unspecified asthma, uncomplicated; F31.9 Bipolar disorder, unspecified; F41.9 Anxiety disorder, unspecified; F17.210 Nicotine dependence, cigarettes, uncomplicated; F12.90 Cannabis use, unspecified, uncomplicated; Z59.0 Homelessness
CPT/HCPCS: 80053; 80307; 84443; 85025; 96372; 99285; J1630; J2060